=== PATIENT | male | born 1955 | race Hispanic/Latino ===

== ENCOUNTER 2016-12-27 06:07 | Inpatient (IN) | payer OTHER ==
[2016-12-24 08:44] VITALS: BMI 25.7
[2016-12-27] MEDS ORDERED: Lactated Ringer's 1,000 ML IV ONE ×2 (06:33→09:36)
--- NOTE | 2016-12-27 06:45 | CP.PCM.HP ---
History of Present Illness - History of Present Illness History of Present Illness: CC: scheduled L knee replacement HPI: This is a 61 y/o male with EtOH liver disease and thrombocytopenia, HTN, and HLD who comes in for L knee replacement got osteoarthritis. Patient currently has no c/c. No CP, no SOB. No recent f/c/n/v/d. L knee without any acute changes recently. No significant bleeding recently. Patient otherwise voices no c/c. ROS: 14 systems reviewed, negative other than HPI MHx: EtOH liver disease with thrombocytopenia, HTN, HLD, Parekh's esophagus SHx: Clavicle repair, knee surgery x 2, L adrenal adenoma Allergies: silk Medications: Per med rec Family Hx: no relevant conditions reported Social Hx: Lives at home, occ EtOH, no tobacco Studies: EKG: NSR, ?QW in III, AVF CXR: No acute cardiac/pulm issues per report; L shoulder with screw at clavicle Nuclear stress: No areas of reperfusion defects, fixed ifnerior defect; LVEF 50% Echo: trace MR and TR; EF 70% per this test Labs: notable for WC 3.0, plt 83; AST/ALT: 122/87 Patient has pre-op eval per cardiology, hematology, GI and PCP. Present on Admission - Present on Admission Any Indicators Present on Admission: No Past Patient History - Past Medical History & Family History Past Medical History?: Yes - Past Social History Smoking Status: Never Smoked - CARDIAC Hx Cardiac Disorders: Yes Hx Hypercholesterolemia: Yes Hx Hypertension: Yes - PULMONARY Hx Respiratory Disorders: No - NEUROLOGICAL Hx Neurological Disorder: No - HEENT Hx HEENT Problems: No - RENAL Hx Chronic Kidney Disease: No - ENDOCRINE/METABOLIC Hx Endocrine Disorders: No - HEMATOLOGICAL/ONCOLOGICAL Hx Blood Disorders: No - INTEGUMENTARY Hx Dermatological Problems: No - MUSCULOSKELETAL/RHEUMATOLOGICAL Hx Musculoskeletal Disorders: Yes Hx Arthritis: Yes Hx Osteoarthritis: Yes - GASTROINTESTINAL Hx Gastrointestinal Disorders: No - GENITOURINARY/GYNECOLOGICAL Hx Genitourinary Disorders: No - PSYCHIATRIC Hx Psychophysiologic Disorder: Yes Hx Anxiety: Yes Hx Depression: Yes - SURGICAL HISTORY Hx Surgeries: Yes Hx Arthroscopy: Yes (RIGHT KNEE) Hx Orthopedic Surgery: Yes (LEFT SHOULDER .LEFT KNEE) - ANESTHESIA Hx Anesthesia: Yes Hx Anesthesia Reactions: No Hx Malignant Hyperthermia: No Has any member of the family had a problem w/ anesthesia?: No Meds Allergies/Adverse Reactions: Allergies Allergy/AdvReac Type Severity Reaction Status Date / Time silk AdvReac BLISTER Verified 12/24/16 08:42 Physical Exam - Constitutional Appears: No Acute Distress - Head Exam Head Exam: ATRAUMATIC, NORMOCEPHALIC - Eye Exam Eye Exam: EOMI, PERRL - ENT Exam ENT Exam: Mucous Membranes Dry - Neck Exam Neck exam: Positive for: Full Rom - Respiratory Exam Respiratory Exam: Clear to Auscultation Bilateral, NORMAL BREATHING PATTERN - Cardiovascular Exam Cardiovascular Exam: REGULAR RHYTHM, +S1, +S2 - GI/Abdominal Exam GI & Abdominal Exam: Normal Bowel Sounds, Soft - Extremities Exam Extremities exam: Positive for: normal inspection Additional comments: L knee without any redness/swelling - Neurological Exam Neurological exam: Alert, CN II-XII Intact, Oriented x3 - Psychiatric Exam Psychiatric exam: Normal Affect, Normal Mood - Skin Skin Exam: Dry, Warm Results - Vital Signs Recent Vital Signs: Last Vital Signs Temp 99.4 F 12/27/16 06:39 Pulse 82 12/27/16 06:39 Resp 20 12/27/16 06:39 BP 150/100 H 12/27/16 06:39 Pulse Ox 98 12/27/16 06:39 Assessment & Plan (1) Status post knee replacement Assessment and Plan: 61 y/o male presenting for scheduled L knee replacement. History of EtOH liver disease with thrombocytopenia. 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
[2016-12-27] MEDS ORDERED: Ropivacaine 0.5% 30ML IV ONE (07:12)
[2016-12-27] MEDS ORDERED: Lidocaine 1% Inj (20ml) ONE (07:14)
[2016-12-27] MEDS ORDERED: Bupivacaine 0.5% Inj(30mL) ONE (07:14)
[2016-12-27] MEDS ORDERED: Thrombin Topical 5,000 IU Spray Kit ONE (07:14)
[2016-12-27] MEDS ORDERED: Absorbable Gelatin Sponge Size 100 ONE (07:14)
[2016-12-27] MEDS ORDERED: Etomidate 20 mg/10ml Inj IV ONE (07:15)
[2016-12-27] MEDS ORDERED: Succinylcholine 200 mg/10 ml Inj IV ONE (07:15)
[2016-12-27] MEDS ORDERED: Phenylephrine 10 mg/ml Inj ONE (07:15)
[2016-12-27] MEDS ORDERED: Rocuronium 10 mg/ml (5 ml) ONE ×2 (07:15→09:43)
[2016-12-27] MEDS ORDERED: Propofol 10 mg/ml Inj (20 ML) ONE (07:15)
[2016-12-27] MEDS ORDERED: ceFAZolin IV 1 gm in Dextrose 1 GM/50 ML BAG IVPB ONE (07:18)
[2016-12-27] MEDS ORDERED: Midazolam 2 MG/2 ML VIAL ONE (07:50)
[2016-12-27] MEDS ORDERED: Dexamethasone 4 mg/1 ml ONE (09:09)
[2016-12-27] MEDS ORDERED: Sodium Chloride 0.9% 3,000 ML IV ONE (09:37)
[2016-12-27] MEDS ORDERED: Oxycodone/Acetaminophen 5/325 mg Tab PO PRN (09:41)
[2016-12-27] MEDS ORDERED: Sodium Chloride 0.9% 1,000 ML IV SCH (09:45)
[2016-12-27] MEDS ORDERED: Neostigmine Methylsulfate 2 MG/2 ML ML IV ONE (10:03)
[2016-12-27] MEDS ORDERED: Neostigmine Methylsulfate 3mg/3ml Syringe IV ONE (10:03)
[2016-12-27] MEDS ORDERED: HYDROmorphone 0.5 mg/0.5 ml ISec IVP PRN (11:24)
--- NOTE | 2016-12-27 11:28 | PCM.ANESB3 ---
Femoral Nerve Block - Femoral Nerve Block Date of Procedure: 12/27/16 Anesthesiologist: Karen Pre-Procedure Diagnosis: Left Knee OA Post-Procedure Diagnosis: Same Procedure Performed: Femoral Nerve Block Left - Procedure Femoral Nerve Block: The procedure was explained to the patient that it is for the post-operative pain management. Consent was obtained after a thorough discussion with the patient regarding the benefits and possible complications of local anesthetic block of the femoral nerve at the inguinal crease area. The patient was brought to the operating room and standard monitors were applied. Time-out was held with the circulating nurse to confirm the correct surgery and the appropriate block. Under general anesthesia, patient was placed in supine position with fully extended lower extremities and the ___left groin exposed. The femoral artery was then carefully palpated. The ultrasound transducer was then applied to this area in the transverse plane and the femoral nerve was visualized lateral to the femoral artery and underneath the fascia iliaca. After thorough identification, the inguinal crease area was prepped with Chloraprep. At this point, a #22 gauge Stimuplex 4-inch needle was inserted immediately lateral to the femoral artery pulse at the inguinal crease and advanced perpendicularly. The needle was inserted to the ultrasound transducer in-plane towards the femoral nerve in a cresuuz-eu-[id number] direction. Needle advancement was performed carefully under direct ultrasound visualization. Nerve stimulator was used and twitch of the quadriceps muscle was obtained at current of __0.4___ MA. After negative aspiration, _2____cc of __0.5___% ropivicaine ____was injected and this was followed with __18____ cc of __0.5 % ropivicaine . Under ultrasound guidance the local anesthetics were observed spreading below fascia iliaca and around the femoral nerve. The needle was removed intact. The patient tolerated the femoral nerve block well with stable vital signs and was prepared for subsequent surgery.
[2016-12-27] MEDS ORDERED: Lactated Ringer's 1,000 ML IV SCH (11:30)
--- NOTE | 2016-12-27 11:30 | PCM.ANESB2 ---
Popliteal Nerve Block - Popliteal Nerve Block Date of Procedure: 12/27/16 Anesthesiologist: Karen Pre-Procedure Diagnosis: Left Knee OA Post-Procedure Diagnosis: Same Procedure Performed: Popliteal Nerve Block Left - Procedure Popliteal Nerve Block: This procedure was explained to the patient that it is for post-operative pain management. Consent was obtained after a thorough discussion with the patient regarding the benefits and possible complications of local anesthetic block of the sciatic nerve at the popliteal level. The patient was brought to the operating room and standard monitors are applied. Time-out was held with the circulating nurse to confirm the correct surgery and the appropriate block. Under general anesthesia, patient's operative leg was gently raised and supported and the groove in between the biceps femoris and vastus lateralis muscles was carefully palpated. The skin approximately 8cm above the popliteal crease was then marked. The ultrasound transducer was then applied to the posterior thigh approximately 8cm above the popliteal crease in the transverse plane and the sciatic nerve before its division was visualized lateral to the popliteal artery and in between the bicep femoris and semimembranosus/ semitendinosus muscles. After identification, the lateral portion of the thigh was prepped with Betadine solution three times and Lidocaine 1% was injected subcutaneously for topical anesthesia. At this point, a # 21 gauge Stimuplex insulated 4 inch needle was inserted into pre-marked area and advanced in a perpendicular direction. The needle was inserted above the ultrasound transducer in-plane towards the sciatic nerve in a ptipxal-if-eqwhda direction. Needle advancement was performed carefully under direct ultrasound visualization. Nerve stimulator was used and dorsiflexion of the _left____ foot was elicited at a current of ___0.4__ MA. After repeated negative aspiration, __2___cc of __0.5___ % ____ropivicaine was injected and this was flowed with __18____ cc of __0.5____% ___ropivicaine ___. Under ultrasound guidance the local anesthetics were observed surrounding sciatic nerve . The needle was removed intact and sterile dressing was applied. The patient tolerated the popliteal nerve block well with stable vital signs and was subsequently prepared for the surgery.
[2016-12-27 13:06] LABS: HEMATOCRIT 32.4 % (35.0-51.0); MEAN CELL VOLUME 98.3 fl (80.0-94.0); MEAN CORPUSCULAR HEMOGLOBIN 32.5 pg (27.0-31.0); RED CELL DISTRIBUTION WIDTH 15.7 % (11.5-14.5); WHITE BLOOD COUNT 3.4 K/uL (4.8-10.8)
--- NOTE | 2016-12-27 14:00 | PCM.SURG1 ---
Surgeon's Initial Post Op Note - Surgeon's Notes Surgeon: Simeon Care Process Manager: ELAINA Robles/ 2nd assist Gabino Roberts Type of Anesthesia: General Endo, Spinal Anesthesia Administered By: Dr Jones Pre-Operative Diagnosis: Severe ticompartmental O/A L Knee. tricompartmental synovitis Operative Findings: as above. loose body L Knee Post-Operative Diagnosis: as above Operation Performed: L TKR. arthrotomy/excision loose body Lk nee. anterior and posterior synovectomy. posterior capsular release. lateral patella release. computer navigation Specimen/Specimens Removed: cratilage/synovium. bone. loose body Estimated Blood Loss: EBL {In ML}: 50 Blood Products Given: N/A Drains Used: No Drains Post-Op Condition: Good Date of Surgery/Procedure: 12/27/16 Time of Surgery/Procedure: 09:00 (0745- time in room/anesthesia induction time)
--- NOTE | 2016-12-27 14:22 | RAD ---
PROCEDURE: Left Knee Radiographs. HISTORY: Pain. COMPARISON: None. FINDINGS: BONES: Normal. No fracture. JOINTS: Left knee prosthesis. No complicating factors JOINT EFFUSION: None. OTHER FINDINGS: None. IMPRESSION: Left knee prosthesis. No complicating factors
[2016-12-27] MEDS: ceFAZolin IV 1 gm in Dextrose 1 GM/50 ML BAG IVPB SCH (17:58)
[2016-12-28] MEDS: ceFAZolin IV 1 gm in Dextrose 1 GM/50 ML BAG IVPB SCH (00:49)
[2016-12-28 06:41] LABS: HEMATOCRIT 27.6 % (35.0-51.0); MEAN CELL VOLUME 96.5 fl (80.0-94.0); MEAN CORPUSCULAR HEMOGLOBIN 32.4 pg (27.0-31.0); MEAN CORPUSCULAR HGB CONC 33.6 g/dL (33.0-37.0)
[2016-12-28 06:48] LABS: ALB/GLOB RATIO 1.4 (1.0-2.1); ALKALINE PHOSPHATASE 33 U/L (38-126); ALT/SGPT 67 U/L (21-72); AST/SGOT 65 U/L (17-59); BILIRUBIN,TOTAL 1.7 mg/dl (0.2-1.3); BLOOD UREA NITROGEN 20 mg/dl (9-20); CALCIUM 7.3 mg/dL (8.4-10.2); CARBON DIOXIDE 26 mmol/L (22-30); CHLORIDE 102 mmol/L (98-107); GFR AFRICAN-AMERICAN > 60; GLUCOSE,RANDOM 94 mg/dL (75-110); POTASSIUM 3.7 MMOL/L (3.6-5.0); SODIUM 137 mmol/l (132-148); TOTAL PROTEIN 5.7 G/DL (6.3-8.2)
[2016-12-28 07:31] LABS: WHITE BLOOD COUNT 5.2 K/uL (4.8-10.8)
--- NOTE | 2016-12-28 08:18 | CP.PCM.CON ---
History of Present Illness - History of Present Illness History of Present Illness: 61 year male with a history of HTN, HL, liver disease from ETOH, thrombocytopenia, osteoarthritis admitted for left knee replacement. I have been asked to evaluate the patient for his thrombocytopenia by Dr. Hendrix. The patient notes he has had low platelets in the past. He was told it was related to his alcohol intake and was told to stop drinking. He notes to greatly reducing his alcohol use and now only drinks 2-3 glasses of wine daily. He denies abnormal bleeding and bruising. Past medical history: HTN, HL, liver disease, alcohol abuse, thrombocytopenia, Past surgical history: Adrenal gland surgery, knee surgery Family history: Denies hematologic and oncologic problems Social history: Former tobacco abuse, 2-3 glasses of wine daily, denies illicit drug use. Allergies: NKDA Review of systems: All remaining review of systems including HEENT, cardiovascular, respiratory, gastrointestinal, genitourinary, musculoskeletal, dermatologic, neurologic, and psychiatric are negative unless mentioned in the HPI. Past Patient History - Past Medical History & Family History Past Medical History?: Yes - Past Social History Smoking Status: Never Smoked - CARDIAC Hx Cardiac Disorders: Yes Hx Hypercholesterolemia: Yes Hx Hypertension: Yes - PULMONARY Hx Respiratory Disorders: No - NEUROLOGICAL Hx Neurological Disorder: No - HEENT Hx HEENT Problems: No - RENAL Hx Chronic Kidney Disease: No - ENDOCRINE/METABOLIC Hx Endocrine Disorders: No - HEMATOLOGICAL/ONCOLOGICAL Hx Blood Disorders: No - INTEGUMENTARY Hx Dermatological Problems: No - MUSCULOSKELETAL/RHEUMATOLOGICAL Hx Musculoskeletal Disorders: Yes Hx Arthritis: Yes Hx Osteoarthritis: Yes - GASTROINTESTINAL Hx Gastrointestinal Disorders: No - GENITOURINARY/GYNECOLOGICAL Hx Genitourinary Disorders: No - PSYCHIATRIC Hx Psychophysiologic Disorder: Yes Hx Anxiety: Yes Hx Depression: Yes - SURGICAL HISTORY Hx Surgeries: Yes Hx Arthroscopy: Yes (RIGHT KNEE) Hx Orthopedic Surgery: Yes (LEFT SHOULDER .LEFT KNEE) - ANESTHESIA Hx Anesthesia: Yes Hx Anesthesia Reactions: No Hx Malignant Hyperthermia: No Has any member of the family had a problem w/ anesthesia?: No Meds Allergies/Adverse Reactions: Allergies Allergy/AdvReac Type Severity Reaction Status Date / Time silk AdvReac BLISTER Verified 12/24/16 08:42 - Medications Medications: Current Medications Acetaminophen (Tylenol 325mg Tab) 650 mg PO Q4 PRN PRN Reason: Fever 101 degrees fahrenheit Aspirin (Ecotrin) 81 mg PO Q12H [facility] Docusate Sodium (Colace) 100 mg PO BID [facility] Last Admin: 12/27/16 17:58 Dose: 100 mg Hydromorphone HCl (Dilaudid) 0.5 mg IVP Q4 PRN PRN Reason: Pain, severe (8-10) Sodium Chloride (Sodium Chloride 0.9%) 1,000 mls @ 80 mls/hr IV .[id number] [facility] Stop: 12/28/16 09:44 Last Admin: 12/27/16 21:37 Dose: 80 mls/hr Lactated Ringer's (Lactated Ringer's) 1,000 mls @ 100 mls/hr IV .Q10H [facility] Lorazepam (Ativan) 0.5 mg IVP Q4 PRN PRN Reason: Symptoms of alcohol withdrawl Oxycodone/Acetaminophen (Percocet 5/325 Mg Tab) 2 tab PO Q4 PRN PRN Reason: Pain, Mild (1-3) Stop: 12/30/16 09:42 Thiamine HCl (Vitamin B1 Tab) 100 mg PO DAILY [facility] Last Admin: 12/27/16 16:33 Dose: 100 mg Physical Exam - Head Exam Head Exam: ATRAUMATIC - Eye Exam Eye Exam: Normal appearance - ENT Exam ENT Exam: Mucous Membranes Dry - Respiratory Exam Respiratory Exam: NORMAL BREATHING PATTERN - Cardiovascular Exam Cardiovascular Exam: +S1, +S2 - GI/Abdominal Exam GI & Abdominal Exam: Normal Bowel Sounds - Extremities Exam Additional comments: left leg brace - Neurological Exam Neurological exam: Oriented x3 - Psychiatric Exam Psychiatric exam: Normal Affect, Normal Mood - Skin Skin Exam: Warm Results - Vital Signs Recent Vital Signs: Last Vital Signs Temp 98.4 F 12/28/16 07:25 Pulse 84 12/28/16 07:25 Resp 18 12/28/16 07:25 BP 132/85 12/28/16 07:25 Pulse Ox 98 12/28/16 07:25 - Labs Result Diagrams: 12/28/16 06:00 12/28/16 06:00 Labs: Laboratory Results - last 24 hr 12/27/16 12/27/16 12/27/16 06:40 06:55 12:45 WBC 3.4 L RBC 3.30 L Hgb 10.7 L Hct 32.4 L MCV 98.3 H MCH 32.5 H MCHC 33.0 RDW 15.7 H Plt Count 103 L Sodium Potassium Chloride Carbon Dioxide Anion Gap BUN Creatinine Est GFR ( Amer) Est GFR (Non-Af Amer) Random Glucose Calcium Total Bilirubin AST ALT Alkaline Phosphatase Total Protein Albumin Globulin Albumin/Globulin Ratio Blood Type O POSITIVE Blood Type Confirm O POSITIVE Antibody Screen Negative Crossmatch See Detail BBK History Checked No verified bt 12/28/16 12/28/16 06:00 06:00 WBC 5.2 D RBC 2.86 L Hgb 9.3 L Hct 27.6 L MCV 96.5 H MCH 32.4 H MCHC 33.6 RDW 15.0 H Plt Count 86 L Sodium 137 Potassium 3.7 Chloride 102 Carbon Dioxide 26 Anion Gap 13 BUN 20 Creatinine 1.0 Est GFR ( Amer) > 60 Est GFR (Non-Af Amer) > 60 Random Glucose 94 Calcium 7.3 L Total Bilirubin 1.7 H AST 65 H ALT 67 Alkaline Phosphatase 33 L Total Protein 5.7 L Albumin 3.4 L Globulin 2.4 Albumin/Globulin Ratio 1.4 Blood Type Blood Type Confirm Antibody Screen Crossmatch BBK History Checked Assessment & Plan (1) Pancytopenia Assessment and Plan: may have element of splenic sequestration from liver disease related to alcoholism may have element of bone marrow suppression from alcohol case discussed with anesthesia preop; to receive desmopressin 0.2-0.3mcg/kg IV 1 bag platelets on hold by blood bank Thank you for this interesting consult. Status: Acute
[2016-12-28] MEDS ORDERED: Simethicone 80 mg Chewtab PO PRN (09:06)
--- NOTE | 2016-12-28 09:08 | CP.PCM.PN ---
Subjective - Date & Time of Evaluation Date of Evaluation: 12/28/16 Time of Evaluation: 07:30 - Subjective Subjective: Patient states pain is controlled, feeling is starting to come back. Objective - Vital Signs/Intake and Output Vital Signs (last 24 hours): Temp Pulse Resp BP Pulse Ox 98.4 F 84 18 132/85 98 12/28/16 07:25 12/28/16 07:25 12/28/16 07:25 12/28/16 07:25 12/28/16 07:25 - Medications Medications: Current Medications Acetaminophen (Tylenol 325mg Tab) 650 mg PO Q4 PRN PRN Reason: Fever 101 degrees fahrenheit Aspirin (Ecotrin) 81 mg PO Q12H [facility]EMA Docusate Sodium (Colace) 100 mg PO BID [facility] Last Admin: 12/28/16 08:44 Dose: 100 mg Hydromorphone HCl (Dilaudid) 0.5 mg IVP Q4 PRN PRN Reason: Pain, severe (8-10) Last Admin: 12/28/16 08:43 Dose: 0.5 mg Sodium Chloride (Sodium Chloride 0.9%) 1,000 mls @ 80 mls/hr IV .[id number] [facility] Stop: 12/28/16 09:44 Last Admin: 12/27/16 21:37 Dose: 80 mls/hr Lactated Ringer's (Lactated Ringer's) 1,000 mls @ 100 mls/hr IV .Q10H [facility] Lorazepam (Ativan) 0.5 mg IVP Q4 PRN PRN Reason: Symptoms of alcohol withdrawl Oxycodone/Acetaminophen (Percocet 5/325 Mg Tab) 2 tab PO Q4 PRN PRN Reason: Pain, Mild (1-3) Stop: 12/30/16 09:42 Thiamine HCl (Vitamin B1 Tab) 100 mg PO DAILY [facility] Last Admin: 12/28/16 08:45 Dose: 100 mg - Labs Labs: 12/28/16 06:00 12/28/16 06:00 - Extremities Exam Additional comments: +ROM ankle/toes, but sensation is a little decreased globally (due to block) calves soft NT neg homans +DP/PT pulses Assessment and Plan (1) Primary osteoarthritis of left knee Assessment & Plan: POD#1 s/p left TKR PT/OT d/c planning to home vs rehab f/u labs, monitor platelets CPM VTE proph with aspirin as per Dr. Hendrix d/w Dr. Hendrix, agrees with above Status: Acute
--- NOTE | 2016-12-28 10:32 | OP ---
PROCEDURE DATE: 12/27/2016 PREOPERATIVE DIAGNOSIS: Tricompartmental osteoarthritis of the left knee. POSTOPERATIVE DIAGNOSES: 1. Tricompartmental osteoarthritis of the left knee. 2. Tricompartmental synovitis. 3. Loose body, posterior compartment. 4. Posterior capsular contracture. 5. Lateral patellar retinacular contracture. SURGEON: Solitario Hendrix MD CLAY ARTISAN: Bonnie Harris, certified registered nursing teaching assistant. SEC[employer]CHO[employer] BASEBALL COACH: Alejandra. TYPE OF ANESTHESIA: General endotracheal anesthesia. COMPLICATIONS: None. DRAINS: None. 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 The patient has failed conservative management including intra-articular injection, activity modification, and therapy. Pros, cons, risks, and benefits of replacement arthroplasty were discussed. Possibility of mechanical failure, infection, thromboembolic disease, secondary or tertiary surgery is discussed. The patient can no longer withstand the discomfort. Informed consent was obtained. DESCRIPTION OF PROCEDURE: After having obtained informed consent in the above fashion; after having identified side, site, and procedure and a critical pause/time-out; after the satisfactory induction of the anesthetic, the patient identified as Colette Denson in the supine position with all bony prominences well padded. The left lower extremity was prepped and free draped in usual fashion for lower extremity surgery. The tourniquet had been applied, but was not yet inflated. After exsanguinating the limb using a 6-inch Esmarch bandage, the tourniquet, which had been applied, is inflated to 350 mmHg. The patient had had a prior knee surgery 30 years ago, and great care was taken to respect an incision. A 6-inch straight midline approach was made to the knee. The skin incision was carried down through the skin, subcutaneous tissue. Medial arthrotomy was accomplished. Dissection was carried around posteromedially. The tibia was dislocated anteriorly. There was found to be contractures on the lateral aspect. The iliotibial band was released. Tibia was dislocated anteriorly. Anterior and posterior cruciate ligaments were excised, and medial and lateral meniscectomies were accomplished. Computer navigation using the accelerometer technique was employed at this point. This having been accomplished with the tibia dislocating anteriorly, the anterior tibial strut was affixed to the anterior tibia. The accelerometer and sensor were placed. Registration was accomplished, and the varus-valgus was set to 0 degrees and posterior slope to 3 degrees to accommodate the prosthesis prominent condyle. Initial osteotomy of the arthroplasty was accomplished on the tibial side. Attention was turned to the femur. Notch osteophytes, border osteophytes debrided. Computer navigation for the distal cut on the femoral side commenced. The pin was placed above the intercondylar notch. The accelerometer and sensor were placed. Varus-valgus was noted, 0 degrees varus-valgus and 0.5 degrees of flexion. This having been accomplished, distal cut was set to 10 mm. Hip center having been located, registration having being accomplished, the distal cut was 10 mm. Anterior-posterior sizing to #3 femoral component; 4:1 block was placed in the distal aspect of the femur. Anterior and posterior osteotomies were accomplished. Chamfer cuts were accomplished. This having been accomplished, flexion extension gap was measured and found to be equal. This having been accomplished, the posterior capsule was found to be contracted. Preoperatively, the knee was 10 to 12 degrees short of terminal extension. A careful posterior capsular release was accomplished. Notch cut was accomplished. Proximal tibia was prepared with guidance to rotation being the lateral aspect of the tibial condyle, mid malleolar access, and medial third of the tibial tuberosity. Lateral patellar retinacular release was accomplished. Trialing was accomplished with the #4 tibial tray, #3 femoral tray, 11 mm poly. Attention was turned to the patellar-free hip. Patella osteotomy was accomplished at the junction of the articular cartilage and the bone. This having been accomplished, the patella was sized to 38. Flexion-extension gap was found to be excellent in balance. This having been accomplished, the wound was thoroughly irrigated. It should be noted that an anterior and posterior synovectomy had been accomplished early on because of the exuberant synovitis. Hemostasis was controlled. This having been accomplished, the wound was thoroughly irrigated. The femur, tibia, and patella were prepared. The #3 cemented femoral component was applied. The #4 cemented tibial tray, 11 mm polyethylene, 38 mm patella. Partial tricompartmental synovectomy having been completed, hemostasis was controlled with the Aquamantys. Closure was in layers with #1 Vicryl followed by 0 Vicryl, 2-0 Vicryl, and jose for skin. Tourniquet had been deflated. Irrisept was used for irrigation. Shadi Canela compression dressing and knee immobilizer were applied. Solitario Hendrix MD
--- NOTE | 2016-12-28 11:24 | CP.PCM.PN ---
Subjective - Date & Time of Evaluation Date of Evaluation: 12/28/16 Time of Evaluation: 11:00 - Subjective Subjective: Pt is sitted on the Ortho chair, looks comfortable No fever Post op pain controlled denies CP no SOB no abd pain noted sl hand tremor - ? Alcohol withdrawal - Ativan prn given Pt did well with PT today Objective - Vital Signs/Intake and Output Vital Signs (last 24 hours): Temp Pulse Resp BP Pulse Ox 98.4 F 84 18 132/85 98 12/28/16 09:00 12/28/16 07:25 12/28/16 07:25 12/28/16 07:25 12/28/16 07:25 - Medications Medications: Current Medications Acetaminophen (Tylenol 325mg Tab) 650 mg PO Q4 PRN PRN Reason: Fever 101 degrees fahrenheit Aspirin (Ecotrin) 81 mg PO Q12H [facility] Last Admin: 12/28/16 11:02 Dose: 81 mg Atorvastatin Calcium (Lipitor) 10 mg PO HS [facility] Calcium Carbonate (Oscal) 500 mg PO DAILY [facility] Docusate Sodium (Colace) 100 mg PO BID [facility] Last Admin: 12/28/16 08:44 Dose: 100 mg Escitalopram Oxalate (Lexapro) 10 mg PO DAILY [facility] Home Med (Magnesium Oxide [Magnesium]) 500 mg PO DAILY [facility] Home Med (Silodosin [Rapaflo]) 8 mg PO DAILY [facility] Home Med (Simethicone [Gas Relief]) 180 mg PO BID PRN PRN Reason: GI distress Hydromorphone HCl (Dilaudid) 0.5 mg IVP Q4 PRN PRN Reason: Pain, severe (8-10) Last Admin: 12/28/16 08:43 Dose: 0.5 mg Lactated Ringer's (Lactated Ringer's) 1,000 mls @ 100 mls/hr IV .Q10H [facility] Labetalol HCl (Trandate) 200 mg PO BID [facility] Lorazepam (Ativan) 0.5 mg IVP Q4 PRN PRN Reason: Symptoms of alcohol withdrawl Last Admin: 12/28/16 11:11 Dose: 0.5 mg Oxycodone/Acetaminophen (Percocet 5/325 Mg Tab) 2 tab PO Q4 PRN PRN Reason: Pain, Mild (1-3) Stop: 12/30/16 09:42 Last Admin: 12/28/16 11:01 Dose: 2 tab Thiamine HCl (Vitamin B1 Tab) 100 mg PO DAILY [facility] Last Admin: 12/28/16 08:45 Dose: 100 mg - Labs Labs: 12/28/16 06:00 12/28/16 06:00 - Constitutional Appears: No Acute Distress - Head Exam Head Exam: NORMAL INSPECTION, NORMOCEPHALIC - Eye Exam Eye Exam: EOMI, Normal appearance, PERRL Pupil Exam: NORMAL ACCOMODATION - ENT Exam ENT Exam: Mucous Membranes Moist, Normal External Ear Exam - Neck Exam Neck Exam: Full ROM. absent: Meningismus - Respiratory Exam Respiratory Exam: NORMAL BREATHING PATTERN. absent: Rales, Wheezes, Respiratory Distress - Cardiovascular Exam Cardiovascular Exam: REGULAR RHYTHM, +S1, +S2 - GI/Abdominal Exam GI & Abdominal Exam: Soft, Normal Bowel Sounds. absent: Tenderness - Extremities Exam Extremities Exam: Normal Capillary Refill. absent: Calf Tenderness Additional comments: left knee with dressing, Immobilizer sl hand tremor - Back Exam Back Exam: Full ROM. absent: CVA tenderness (L), CVA tenderness (R) - Neurological Exam Neurological Exam: Alert, Awake, CN II-XII Intact, Oriented x3 Neuro motor strength exam: Left Upper Extremity: 5, Right Upper Extremity: 5, Left Lower Extremity: 5, Right Lower Extremity: 5 - Psychiatric Exam Psychiatric exam: Normal Affect, Normal Mood - Skin Skin Exam: Dry, Normal Color, Warm Assessment and Plan - Assessment and Plan (Free Text) Assessment: 61 y/o male presenting for scheduled L knee replacement. Long history of OA, failed oupt treatment with intraart injections, Pain mgt and PT. Pt also has hx of EtOH liver disease with thrombocytopenia. (1) Severe Primary Osteoarthritis , Status post total knee replacement, left Ortho: Dr Henrdix following pt Pain mgt PT/OT DVT proph (2) HTN (hypertension) Status: Acute cont Labetatlol (3) HLD (hyperlipidemia) Status: Acute cont statin (4) Alcoholic liver disease with thrombocytopenia Status: Acute Ativan prn for signs of ETOH withdrawal Thiamine 100 mg daily no signs of bleeding received DDAVP in the OR 5. Mild Acute Blood Loss Anemia post op start Ferrous pt is asymptomatic (6) DVT prophylaxis Status: Acute cont ASA no antcicoag sec to thrombocytopenia
[2016-12-29] MEDS ORDERED: Magnesium Oxide 400 mg Tab UD PO SCH (09:00)
[2016-12-29] MEDS ORDERED: Lactated Ringer's 500 ML IV SCH (10:30)
--- NOTE | 2016-12-29 10:30 | CP.PCM.PN ---
Subjective - Date & Time of Evaluation Date of Evaluation: 12/29/16 Time of Evaluation: 07:30 - Subjective Subjective: patient states pain is improving. Denies CP/SOB, says he feels less shaky and anxious today. Objective - Vital Signs/Intake and Output Vital Signs (last 24 hours): Temp Pulse Resp BP Pulse Ox 99 F 107 H 20 111/68 97 12/29/16 08:10 12/29/16 10:15 12/29/16 10:15 12/29/16 10:15 12/29/16 10:15 - Medications Medications: Current Medications Acetaminophen (Tylenol 325mg Tab) 650 mg PO Q4 PRN PRN Reason: Fever 101 degrees fahrenheit Aspirin (Ecotrin) 81 mg PO Q12H [facility] Last Admin: 12/29/16 09:00 Dose: 81 mg Atorvastatin Calcium (Lipitor) 10 mg PO HS [facility] Last Admin: 12/28/16 20:59 Dose: 10 mg Calcium Carbonate (Oscal) 500 mg PO DAILY [facility] Last Admin: 12/29/16 09:00 Dose: 500 mg Docusate Sodium (Colace) 100 mg PO BID [facility] Last Admin: 12/29/16 08:58 Dose: 100 mg Escitalopram Oxalate (Lexapro) 10 mg PO DAILY [facility] Last Admin: 12/29/16 08:59 Dose: 10 mg Ferrous Sulfate (Feosol) 325 mg PO BID [facility] Last Admin: 12/29/16 08:58 Dose: 325 mg Folic Acid (Folic Acid) 1 mg PO DAILY [facility] Last Admin: 12/29/16 08:59 Dose: 1 mg Hydromorphone HCl (Dilaudid) 0.5 mg IVP Q4 PRN PRN Reason: Pain, severe (8-10) Last Admin: 12/29/16 08:57 Dose: 0.5 mg Lactated Ringer's (Lactated Ringer's 500ml) 500 mls @ 100 mls/hr IV .Q5H [facility] Labetalol HCl (Trandate) 200 mg PO BID [facility] Last Admin: 12/29/16 09:00 Dose: 200 mg Lorazepam (Ativan) 0.5 mg IVP Q4 PRN PRN Reason: Symptoms of alcohol withdrawl Last Admin: 12/28/16 21:02 Dose: 0.5 mg Magnesium Oxide (Mag-Ox) 400 mg PO DAILY [facility] Last Admin: 12/29/16 08:59 Dose: 400 mg Oxycodone/Acetaminophen (Percocet 5/325 Mg Tab) 2 tab PO Q4 PRN PRN Reason: Pain, Mild (1-3) Stop: 12/30/16 09:42 Last Admin: 12/28/16 11:01 Dose: 2 tab Simethicone (Mylicon Chew Tab) 160 mg PO BID PRN PRN Reason: GI distress Tamsulosin HCl (Flomax) 0.4 mg PO DAILY [facility] Last Admin: 12/29/16 08:59 Dose: 0.4 mg Thiamine HCl (Vitamin B1 Tab) 100 mg PO DAILY [facility] Last Admin: 12/29/16 09:00 Dose: 100 mg - Labs Labs: 12/28/16 06:00 12/28/16 06:00 - Extremities Exam Additional comments: Left knee: moderate swelling as expected, no active drainage, no erythema, +ROM ankle/toes 5/5, sensatino intact +DP/PT pulses Assessment and Plan (1) Primary osteoarthritis of left knee Assessment & Plan: POD#2 s/p left TKR -ortho stable for d/c to rehab -Cont aspirin for VTE proph -dressing to be changed POD#7 WBAT LLE, knee immobilizer at night, remove during day, encourage ROM -f/u 10-14 days call for appointment [phone] Status: Acute
--- NOTE | 2016-12-29 11:36 | CP.PCM.DIS ---
Provider - Provider Date of Admission: 12/27/16 09:41 Attending physician: Elba Valerio MD Primary care physician: Solitario Hendrix III, MD Consults: Ortho : Dr Hendrix Cardio: Dr Brothers Time Spent in preparation of Discharge (in minutes): 40 Diagnosis - Discharge Diagnosis (1) Status post knee replacement Status: Acute (2) Primary osteoarthritis of left knee Status: Chronic (3) Acute blood loss as cause of postoperative anemia Status: Acute (4) Alcoholic liver disease Status: Chronic (5) HLD (hyperlipidemia) Status: Chronic (6) HTN (hypertension) Status: Chronic (7) Thrombocytopenia Status: Chronic Hospital Course - Lab Results Lab Results: Most Recent Lab Values WBC 5.2 K/uL (4.8-10.8) D 12/28/16 06:00 RBC 2.86 Mil/uL (4.40-5.90) L 12/28/16 06:00 Hgb 9.3 g/dL (12.0-18.0) L 12/28/16 06:00 Hct 27.6 % (35.0-51.0) L 12/28/16 06:00 MCV 96.5 fl (80.0-94.0) H 12/28/16 06:00 MCH 32.4 pg (27.0-31.0) H 12/28/16 06:00 MCHC 33.6 g/dL (33.0-37.0) 12/28/16 06:00 RDW 15.0 % (11.5-14.5) H 12/28/16 06:00 Plt Count 86 K/uL (130-400) L 12/28/16 06:00 Sodium 137 mmol/l (132-148) 12/28/16 06:00 Potassium 3.7 MMOL/L (3.6-5.0) 12/28/16 06:00 Chloride 102 mmol/L (98-107) 12/28/16 06:00 Carbon Dioxide 26 mmol/L (22-30) 12/28/16 06:00 Anion Gap 13 (10-20) 12/28/16 06:00 BUN 20 mg/dl (9-20) 12/28/16 06:00 Creatinine 1.0 mg/dL (0.8-1.5) 12/28/16 06:00 Est GFR ( Amer) > 60 12/28/16 06:00 Est GFR (Non-Af Amer) > 60 12/28/16 06:00 Random Glucose 94 mg/dL (75-110) 12/28/16 06:00 Calcium 7.3 mg/dL (8.4-10.2) L 12/28/16 06:00 Total Bilirubin 1.7 mg/dl (0.2-1.3) H 12/28/16 06:00 AST 65 U/L (17-59) H 12/28/16 06:00 ALT 67 U/L (21-72) 12/28/16 06:00 Alkaline Phosphatase 33 U/L (38-126) L 12/28/16 06:00 Total Protein 5.7 G/DL (6.3-8.2) L 12/28/16 06:00 Albumin 3.4 g/dL (3.5-5.0) L 12/28/16 06:00 Globulin 2.4 gm/dL (2.2-3.9) 12/28/16 06:00 Albumin/Globulin Ratio 1.4 (1.0-2.1) 12/28/16 06:00 Blood Type O POSITIVE 12/27/16 06:40 Blood Type Confirm O POSITIVE 12/27/16 06:55 Antibody Screen Negative 12/27/16 06:40 Crossmatch See Detail 12/27/16 06:40 BBK History Checked No verified bt 12/27/16 06:40 - Hospital Course Hospital Course: 61 y/o male presented for scheduled L knee replacement. Long history of OA, failed outpt treatment with intraarticular injections, Pain mgt and PT. Pt also has hx of EtOH liver disease with thrombocytopenia. (1) Severe Primary Osteoarthritis , Status post total knee replacement, left Ortho: Dr Hendrix Pain mgt WBAT immobilizer at bedtime only PT/OT DVT proph (2) HTN (hypertension) Status: Acute cont Labetatalol (3) HLD (hyperlipidemia) Status: Acute cont statin (4) Alcoholic liver disease with thrombocytopenia Status: Acute Ativan prn for signs of ETOH withdrawal Thiamine 100 mg daily Librium tapering dose no signs of bleeding received DDAVP in the OR 5. Mild Acute Blood Loss Anemia post op start Ferrous pt is asymptomatic transfused 1 unit PRBC (6) DVT prophylaxis Status: Acute cont ASA no anticoag sec to thrombocytopenia Discharge Exam - Head Exam Head Exam: ATRAUMATIC, NORMAL INSPECTION, NORMOCEPHALIC - Eye Exam Eye Exam: EOMI, Normal appearance, PERRL Pupil Exam: NORMAL ACCOMODATION - ENT Exam ENT Exam: Mucous Membranes Moist, Normal External Ear Exam - Neck Exam Neck exam: Full Rom - Respiratory Exam Respiratory Exam: NORMAL BREATHING PATTERN. absent: Respiratory Distress - Cardiovascular Exam Cardiovascular Exam: REGULAR RHYTHM, +S1, +S2 - GI/Abdominal Exam GI & Abdominal Exam: Normal Bowel Sounds, Soft. absent: Tenderness - Extremities Exam Extremities exam: normal capillary refill, pedal pulses present Additional comments: no calf tenderness Left knee with dressing and Immobilizer - Back Exam Back exam: FULL ROM. absent: CVA tenderness (L), CVA tenderness (R) - Neurological Exam Neurological exam: Alert, CN II-XII Intact, Oriented x3, Reflexes Normal - Psychiatric Exam Psychiatric exam: Normal Affect, Normal Mood - Skin Skin Exam: Dry, Normal Color Discharge Plan - Discharge Medications Prescriptions: chlordiazePOXIDE [Chlordiazepoxide HCl] 10 mg PO Q6 #10 cap Lorazepam [Ativan] 0.5 mg PO Q8 PRN #1 tab PRN Reason: Symptoms Of Alcohol Withdrawl - Follow Up Plan Condition: GOOD Disposition: TRANSF TO SNF Instructions: Knee Replacement (DC) Additional Instructions: d/c to [facility] WBAT Keep immobilizer on at night, d/c during daytime appt with Dr Hendrix in 1 wk Watch out for signs of Alcohol Withdrawal Referrals: Solitario Hendrix III, MD [Primary Care Provider] -
[2016-12-29 11:41] LABS: HEMATOCRIT 25.8 % (35.0-51.0); MEAN CELL VOLUME 95.3 fl (80.0-94.0); MEAN CORPUSCULAR HEMOGLOBIN 33.3 pg (27.0-31.0); RED CELL DISTRIBUTION WIDTH 15.1 % (11.5-14.5); WHITE BLOOD COUNT 5.9 K/uL (4.8-10.8)
[2016-12-29 16:11] VITALS: BP 112/76; PULSE 99; RESP 20; TEMP 98.9; O2SAT 97
== END 2016-12-29 18:40 | DRG 470 ==
LOC: H.OPSURG 06:07 → EDSEX 07:45 → H.MEDSURG1 09:41
PROVIDERS: ADMIT Internal Medicine; ATTEND Internal Medicine
PROC: 0SRD0J9 Replacement of Left Knee Joint with Synthetic Substitute, Cemented, Open Approach (ICD-10-PCS; principal; 2016-12-27 07:45)
PROC: 3E0T3BZ Introduction of Anesthetic Agent into Peripheral Nerves and Plexi, Percutaneous Approach (ICD-10-PCS; 2016-12-27 07:45)
PROC: 3E0T33Z Introduction of Anti-inflammatory into Peripheral Nerves and Plexi, Percutaneous Approach (ICD-10-PCS; 2016-12-27 07:45)
PROC: 30233N1 Transfusion of Nonautologous Red Blood Cells into Peripheral Vein, Percutaneous Approach (ICD-10-PCS; 2016-12-29)
DX: M17.12 Unilateral primary osteoarthritis, left knee (principal); D62 Acute posthemorrhagic anemia; D69.59 Other secondary thrombocytopenia; K70.40 Alcoholic hepatic failure without coma; F10.288 Alcohol dependence with other alcohol-induced disorder; F10.239 Alcohol dependence with withdrawal, unspecified; M65.862 Other synovitis and tenosynovitis, left lower leg; E78.5 Hyperlipidemia, unspecified; I10 Essential (primary) hypertension; Z96.651 Presence of right artificial knee joint; F32.9 Major depressive disorder, single episode, unspecified; F41.9 Anxiety disorder, unspecified; Z87.891 Personal history of nicotine dependence

== ENCOUNTER 2017-02-01 16:20 | Inpatient (IN) | payer OTHER ==
[2017-02-01 16:20] VITALS: BMI 25.7
--- NOTE | 2017-02-01 17:14 | ED PDOC ---
Lower Extremity Pain/Injury Time Seen by Provider: 02/01/17 16:48 Chief Complaint (Nursing): Lower Extremity Problem/Injury Chief Complaint (Provider): LEFT knee swelling History Per: Patient Onset/Duration Of Symptoms: Days (3) Additional Complaint(s): Progressive swelling to LEFT knee and then developed drainage yesterday Reports feeling "flu-boogie" with mild sore throat. Post op LEFT knee replacement by Dr Hendrix 12/27 Had been applying NSAID ointment to LEFT knee as directed by his brother. Past Medical History Reviewed: Historical Data, Nursing Documentation, Vital Signs Vital Signs: Last Vital Signs Temp 99.2 F 02/01/17 16:41 Pulse 106 H 02/01/17 16:41 Resp 20 02/01/17 16:41 BP 90/59 L 02/01/17 16:41 Pulse Ox 98 02/01/17 16:41 - Medical History PMH: Anxiety, Arthritis, Depression, HTN, Hypercholesterolemia Denies: Chronic Kidney Disease - Family History Family History: States: No Known Family Hx - Social History Alcohol: Other (Alcoholism) - Home Medications Home Medications: Ambulatory Orders Medication Instructions Recorded Silodosin [Rapaflo] 8 mg PO DAILY 12/27/16 Simvastatin [Zocor] 20 mg PO HS 12/27/16 Calcium Carbonate [Calcium] 500 mg PO DAILY 02/01/17 Lorazepam [Ativan] 0.5 mg PO Q12H PRN 02/01/17 Magnesium Oxide [Mag-Ox] 400 mg PO DAILY 02/01/17 Multivitamin [Multi-Vitamin Daily] 1 tab PO DAILY 02/01/17 Pantoprazole Sodium [Protonix] 20 mg PO BID 02/01/17 Acetaminophen [Tylenol 325mg tab] 650 mg PO Q4 PRN tab 02/04/17 Calcium Carbonate [Oscal] 500 mg PO DAILY tab 02/04/17 Cefepime 1gm in NS 50ml [Cefepime 1 gm IVPB Q12 #60 bag 02/04/17 1gm] Docusate Sodium [Colace] 100 mg PO BID #60 capsule 02/04/17 Enoxaparin [Lovenox] 40 mg SC DAILY syr 02/04/17 Ferrous Sulfate [Feosol] 325 mg PO BID tab 02/04/17 Vancomycin/0.9 % Sod Chloride 1 gm IV DAILY #30 plast..bag 02/04/17 [Vanco 1 Gram/250 ml-0.9% NaCl] chlordiazePOXIDE [Librium] 10 mg PO Q6 cap 02/04/17 oxyCODONE/Acetaminophen [Percocet 1 tab PO Q4 PRN #30 tab 02/04/17 5/325 mg Tab] - Allergies Allergies/Adverse Reactions: Allergies Allergy/AdvReac Type Severity Reaction Status Date / Time silk AdvReac BLISTER Verified 12/24/16 08:42 Review of Systems ROS Statement: Except As Marked, All Systems Reviewed And Found Negative (and as per HPI) Constitutional: Positive for: Chills, Malaise ENT: Positive for: Throat Pain Musculoskeletal: Positive for: Leg Pain. Negative for: Neck Pain, Back Pain Skin: Positive for: Lesions Physical Exam - Reviewed Nursing Documentation Reviewed: Yes Vital Signs Reviewed: Yes - Physical Exam Appears: Positive for: Non-toxic, In Acute Distress (mild painful) Head Exam: Positive for: ATRAUMATIC, NORMOCEPHALIC Skin: Positive for: Warm, Dry Eye Exam: Positive for: EOMI, PERRL, Conjunctival injection ENT: Positive for: Other (tacky mucus membranes) Neck: Positive for: Painless ROM, Supple Cardiovascular/Chest: Positive for: Tachycardia. Negative for: Murmur Respiratory: Positive for: Normal Breath Sounds. Negative for: Respiratory Distress Gastrointestinal/Abdominal: Positive for: Soft. Negative for: Tenderness Back: Positive for: Normal Inspection Extremity: Positive for: Other (LEFT knee: erythema and edema, mild ttp, slightly dehisced surgical wound) Neurologic/Psych: Positive for: Alert. Negative for: Motor/Sensory Deficits - Laboratory Results Result Diagrams: 02/04/17 06:25 02/04/17 06:25 - ECG O2 Sat by Pulse Oximetry: 98 Medical Decision Making Medical Decision Making: ANIA Cano and Dr Zuñiga Hospitalist Pt needs hospitalization for knee infection requiring IV antibiotics and surgical intervention Disposition - Clinical Impression Clinical Impression: Status post knee replacement, Discharge from wound - Disposition Disposition Time: 17:00 Condition: SERIOUS - Pt Status Changed To: Hospital Disposition Of: Inpatient - Admit Certification Admit to Inpatient:: After my assessment, the patient will require hospitalization for at least two midnights. This is because of the severity of symptoms shown, intensity of services needed, and/or the medical risk in this patient being treated as an outpatient. - POA Present On Arrival: Surgical Site Infection
[2017-02-01 17:36] LABS: ALCOHOL SERUM < 10 mg/dl (0-10); ALKALINE PHOSPHATASE 67 U/L (38-126); ALT/SGPT 36 U/L (21-72); AST/SGOT 29 U/L (17-59); BLOOD UREA NITROGEN 44 mg/dl (9-20); CALCIUM 8.9 mg/dL (8.4-10.2); CARBON DIOXIDE 24 mmol/L (22-30); CHLORIDE 103 mmol/L (98-107); GFR AFRICAN-AMERICAN 32; GLUCOSE,RANDOM 127 mg/dL (75-110); POTASSIUM 3.4 MMOL/L (3.6-5.0); SODIUM 138 mmol/l (132-148); TOTAL PROTEIN 6.9 G/DL (6.3-8.2)
[2017-02-01 17:40] LABS: BASO % 0.2 % (0.0-2.0); EOS # 0.1 K/uL (0.0-0.7); EOS % 1.6 % (0.0-4.0); LYMPH # 0.3 K/uL (1.0-4.3); LYMPH % 4.2 % (20.0-40.0); MEAN CELL VOLUME 98.6 fl (80.0-94.0); MEAN CORPUSCULAR HEMOGLOBIN 32.1 pg (27.0-31.0); MEAN CORPUSCULAR HGB CONC 32.6 g/dL (33.0-37.0); MONO % 15.5 % (0.0-10.0); NEUT # 5.3 K/uL (1.8-7.0); NEUT % 78.5 % (50.0-75.0); PLATELET COUNT 99 K/uL (130-400); RED CELL DISTRIBUTION WIDTH 16.1 % (11.5-14.5); WHITE BLOOD COUNT 6.8 K/uL (4.8-10.8)
[2017-02-01 17:49] LABS: PARTIAL THROMBOPLASTIN TIME 32.2 Seconds (25.6-37.1)
[2017-02-01] MEDS ORDERED: Thiamine 100 mg/ml Inj IM ONE (18:11)
--- NOTE | 2017-02-01 18:14 | CP.PCM.HP ---
History of Present Illness - History of Present Illness History of Present Illness: Chief Complaint : Left knee drainage , recent TKR 1 month ago HPI : 61 y/o gent with hx of Alcoholism, HTN, Hyperlipidemia, BPH, OA s/p Left TKR , came in bec of left knee drainage. The patient had Left TKR December. He did well post op , he had no complications however during his stay , he was noted to have signs and symptoms of Alcohol withdrawal. He was discharge to a Subacute Rehab for Physical therapy. Accvording to the patient , he was dpoing well with PT and was discharged Home on January 10 and continued Outpatient physical therapy. Patient was fine however last Tuesday (January 28) he peeled off a scab from the wound, when he woke up the following day, he had a slight fever , and started having knee pain and drainage. Noticed drainage to increase last Tuesday so he went to [facility] ED where they gave him a dose of antibiotics and sent him home to ff up with Dr Hendrix. He went to see Dr Hendrix this morning and was advised admission for further evaluation . Present on Admission - Present on Admission Any Indicators Present on Admission: Yes History Surgical Site Infection Following: Orthopedic Procedures (left knee drainage , hx of TKR , need to r/o infection) Review of Systems - Review of Systems All systems: reviewed and no additional remarkable complaints except - Constitutional Constitutional: Fever. absent: Chills - EENT Eyes: absent: Change in Vision Ears: absent: Ear Discharge, Ear Pain Nose/Mouth/Throat: Sore Throat. absent: Nasal Congestion, Nasal Discharge - Cardiovascular Cardiovascular: absent: Chest Pain, Dyspnea on Exertion, Orthopnea, Palpitations , Paroxysmal Nocturnal Dyspnea, Pedal Edema - Respiratory Respiratory: absent: Cough, Dyspnea, Dyspnea on Exertion, Wheezing - Gastrointestinal Gastrointestinal: absent: Abdominal Pain, Nausea, Vomiting - Genitourinary Genitourinary: Nocturia, Urinary Frequency. absent: Dysuria - Musculoskeletal Musculoskeletal: Arthralgias. absent: Back Pain - Integumentary Integumentary: absent: Pruritus, Rash Additional comments: l - Neurological Neurological: absent: Dizziness, Focal Weakness, Headaches - Psychiatric Psychiatric: Anxiety. absent: Depression - Endocrine Endocrine: absent: Polydipsia, Polyphagia, Polyuria - Hematologic/Lymphatic Hematologic: Easy Bruising. absent: Easy Bleeding Past Patient History - Infectious Disease Hx of Infectious Diseases: None - Tetanus Immunizations Tetanus Immunization: Unknown - Past Medical History & Family History Past Medical History?: Yes Pertinent Family History: Mother - HTN Father - Cancer , unknown what - Past Social History Smoking Status: Never Smoked Chewing Tobacco Use: No Cigar Use: No Alcohol: > 2 Drinks/Day (Alcoholism) Drugs: Denies Home Situation {Lives}: With Family - CARDIAC Hx Hypercholesterolemia: Yes Hx Hypertension: Yes - PULMONARY Hx Respiratory Disorders: No - NEUROLOGICAL Hx Neurological Disorder: No - HEENT Hx HEENT Problems: No - RENAL Hx Chronic Kidney Disease: No - ENDOCRINE/METABOLIC Hx Endocrine Disorders: No Hx Adrenal Cancer: No (Hx of adrenal mass - left adrenalectomy) - HEMATOLOGICAL/ONCOLOGICAL Hx Blood Disorders: No - INTEGUMENTARY Hx Dermatological Problems: No - MUSCULOSKELETAL/RHEUMATOLOGICAL Hx Arthritis: Yes Hx Degenerative Joint Disease: Yes - GASTROINTESTINAL Hx Gastrointestinal Disorders: Yes (Hx of Parekh's esophagus) - GENITOURINARY/GYNECOLOGICAL Hx Genitourinary Disorders: No - PSYCHIATRIC Hx Anxiety: Yes Hx Depression: Yes - SURGICAL HISTORY Hx Surgeries: Yes Hx Arthroscopy: Yes (RIGHT KNEE) Hx Orthopedic Surgery: Yes (left Clavicular fracture surgery, left TKR) - ANESTHESIA Hx Anesthesia: Yes Hx Anesthesia Reactions: No Hx Malignant Hyperthermia: No Meds Allergies/Adverse Reactions: Allergies Allergy/AdvReac Type Severity Reaction Status Date / Time silk AdvReac BLISTER Verified 12/24/16 08:42 Physical Exam - Constitutional Appears: Other (has slight hand tremor) - Head Exam Head Exam: NORMAL INSPECTION, NORMOCEPHALIC - Eye Exam Eye Exam: EOMI, Normal appearance Pupil Exam: NORMAL ACCOMODATION - ENT Exam ENT Exam: Mucous Membranes Moist, Normal External Ear Exam, Normal Oropharynx - Neck Exam Neck exam: Positive for: Full Rom. Negative for: Meningismus - Respiratory Exam Respiratory Exam: NORMAL BREATHING PATTERN. absent: Respiratory Distress - Cardiovascular Exam Cardiovascular Exam: REGULAR RHYTHM, +S1, +S2 - GI/Abdominal Exam GI & Abdominal Exam: Normal Bowel Sounds, Soft. absent: Tenderness - Extremities Exam Extremities exam: Positive for: normal capillary refill, pedal pulses present. Negative for: calf tenderness Additional comments: left knee sl swelling and erythema, post op changes, noted serosanguinous drainage from a small opening - Back Exam Back exam: FULL ROM, NORMAL INSPECTION. absent: CVA tenderness (L), CVA tenderness (R), vertebral tenderness - Neurological Exam Neurological exam: Alert, CN II-XII Intact, Oriented x3, Reflexes Normal - Psychiatric Exam Psychiatric exam: Normal Affect, Normal Mood - Skin Skin Exam: Dry, Normal Color, Warm Results - Vital Signs Recent Vital Signs: Last Vital Signs Temp 99.2 F 02/01/17 16:41 Pulse 106 H 02/01/17 16:41 Resp 20 02/01/17 16:41 BP 90/59 L 02/01/17 16:41 Pulse Ox 98 02/01/17 17:19 - Labs Result Diagrams: 02/01/17 17:18 02/01/17 17:18 Labs: Laboratory Results - last 24 hr 02/01/17 02/01/17 02/01/17 17:18 17:18 17:18 WBC 6.8 RBC 3.14 L Hgb 10.1 L Hct 31.0 L MCV 98.6 H D MCH 32.1 H MCHC 32.6 L RDW 16.1 H Plt Count 99 L MPV 9.0 Neut % (Auto) 78.5 H Lymph % (Auto) 4.2 L [place] % (Auto) 15.5 H Eos % (Auto) 1.6 Baso % (Auto) 0.2 Neut # 5.3 Lymph # 0.3 L [place] # 1.0 H Eos # 0.1 Baso # 0.0 PT 14.1 H INR 1.2 APTT 32.2 Sodium 138 Potassium 3.4 L Chloride 103 Carbon Dioxide 24 Anion Gap 14 BUN 44 H Creatinine 2.5 H Est GFR ( Amer) 32 Est GFR (Non-Af Amer) 26 Random Glucose 127 H Calcium 8.9 Total Bilirubin 1.0 AST 29 ALT 36 Alkaline Phosphatase 67 Total Protein 6.9 Albumin 3.5 Globulin 3.4 Albumin/Globulin Ratio 1.0 Alcohol, Quantitative < 10 - EKG Data EKG Interpreted by: Myself EKG shows normal: Sinus rhythm Rate: Normal - EKG Data When Compared to Previous EKG: No Significant Change Assessment & Plan (1) Infection of left knee Status: Suspected (2) Status post knee replacement Status: Acute (3) Primary osteoarthritis of left knee Status: Chronic (4) Alcoholic liver disease Status: Chronic (5) HTN (hypertension) Status: Chronic (6) Thrombocytopenia Status: Chronic (7) DVT prophylaxis Status: Acute - Assessment and Plan (Free Text) Assessment: 61 y/o gent with known hx of Alcoholism, Chronic Liver Dis with Thrombocytopenia , hx of HTN, Hyperlipidemia, BPH, and OA, s/p Left TKR December. The patient was discharge to [facility] on DEC 29 . He was fine on discharge, until Tuesday , he peeled off scab from his surgical wound , and woke up the following day with some fever, and drainage from the left knee TKR wound. (1) r/o Infection of left knee ,history of TKR December 27 Status: Suspected Pt some serosanguinous drainage from the site of left knee TKR no fever at present, no leukocytosis Knee Xray Ortho consult - Dr Hendrix Wound c/s, Blood c/s ID consult - discussed case with Dr Olmedo - quna to start IV Zyvox and Cefepime Pt may need Incision and drainage (2) Status post knee replacement Status: Subacute TKR done Dec 27 , pt was doing well until a few days ago (3) Primary osteoarthritis of left knee Status: Chronic (4) Alcoholic liver disease Status: Chronic sec to Alcoholism Pt follows up with a GI specialist in [facility] 5. [facility] Creatinine was normal on discharge a month ago Renal Sonogram IVF hydration 6. Alcohol Withdrawal Start Ativan prn Librium RTC start Thiamine Urine drug screen (7) HTN (hypertension) Status: Chronic hold antihypertensiives as BP low normal (8) Thrombocytopenia sec to Liver dis /Alcohol Status: Chronic Platelet 99 monitor closely 9. BPH start Flomax ( pt on Rapaflo at home ) (10) DVT prophylaxis Status: Acute SCD for now - sched for Incision and drainage Decision To Admit - Pt Status Changed To: Hospital Disposition Of: Inpatient - Admit Certification Admit to Inpatient:: After my assessment, the patient will require hospitalization for at least two midnights. This is because of the severity of symptoms shown, intensity of services needed, and/or the medical risk in this patient being treated as an outpatient. - . Bed Request Type: Med/Surg Admitting Physician: Elba Valerio
--- NOTE | 2017-02-01 18:47 | RAD ---
HISTORY: fever COMPARISON: None available. TECHNIQUE: Chest, one view. FINDINGS: LUNGS: Limited visualization of the lung apices with probable pleural thickening. Otherwise, no focal consolidation. Please note that chest x-ray has limited sensitivity for the detection of pulmonary masses. PLEURA: No significant pleural effusion identified. No definite pneumothorax . CARDIOVASCULAR: Heart size appears top normal. Ectatic aorta. OSSEOUS STRUCTURES: Postsurgical changes left coracoclavicular join. Right lower lateral rib deformities appear chronic. Degenerative changes of the spine. VISUALIZED UPPER ABDOMEN: Unremarkable. OTHER FINDINGS: None. IMPRESSION: Limited visualization of the lung apices with probable pleural thickening.
--- NOTE | 2017-02-01 18:57 | RAD ---
PROCEDURE: Left Knee Radiographs. HISTORY: COMPARISON: None available. FINDINGS: BONES: Left knee arthroplasty. No acute displaced fracture. JOINTS: No dislocation. JOINT EFFUSION: Suprapatellar joint effusion. OTHER FINDINGS: Marked soft tissue swelling. IMPRESSION: Marked soft tissue swelling. Suprapatellar joint effusion. Left knee arthroplasty hardware.
[2017-02-01 19:02] LABS: URINE BACTERIA RARE (<OCC); URINE BILIRUBIN NEGATIVE (NEGATIVE); URINE BLOOD SMALL (NEGATIVE); URINE COLOR AMBER (YELLOW); URINE GLUCOSE (UA) NEG (Normal); URINE KETONE NEGATIVE (NEGATIVE); URINE LEUKOCYTE ESTERASE NEG Leu/uL (Negative); URINE PROTEIN 100 mg/dL (NEGATIVE); URINE UROBILINOGEN 0.2-1.0 mg/dL (0.2-1.0)
[2017-02-01 19:05] LABS: RBC URINE 13 /hpf (0-3); WBC URINE 8 /hpf (0-5)
[2017-02-01 19:22] LABS: EOSINOPHIL 2 % (0-7); NEUTROPHIL 73 % (42-75); TOTAL CELLS COUNTED 100
[2017-02-01 19:24] LABS: LARGE PLATELETS PRESENT
[2017-02-01] MEDS: Dextrose 5%/0.9% NS 1,000 ML IV SCH (20:50)
[2017-02-01] MEDS: Linezolid 600 mg in D5W 300 ml 600 MG/300 ML BAG IVPB SCH (22:37)
[2017-02-02] MEDS: Dextrose 5%/0.9% NS 1,000 ML IV SCH ×2 (05:30→15:50)
[2017-02-02 06:58] LABS: CALCIUM 8.7 mg/dL (8.4-10.2); POTASSIUM 3.1 MMOL/L (3.6-5.0)
[2017-02-02 07:07] LABS: BASO % 0.2 % (0.0-2.0); EOS # 0.1 K/uL (0.0-0.7); HEMATOCRIT 28.1 % (35.0-51.0); LYMPH # 0.3 K/uL (1.0-4.3); LYMPH % 5.3 % (20.0-40.0); MEAN CELL VOLUME 97.5 fl (80.0-94.0); MEAN CORPUSCULAR HEMOGLOBIN 32.6 pg (27.0-31.0); MEAN CORPUSCULAR HGB CONC 33.5 g/dL (33.0-37.0); MONO # 1.3 K/uL (0.0-0.8); MONO % 23.9 % (0.0-10.0); NEUT # 3.8 K/uL (1.8-7.0); NEUT % 68.6 % (50.0-75.0); NRBC % 0.2 % (0.0-0.0); PLATELET COUNT 115 K/uL (130-400); WHITE BLOOD COUNT 5.5 K/uL (4.8-10.8)
--- NOTE | 2017-02-02 08:07 | CARD ---
APPROVED REPORT EKG Measurement Heart [id number] <Conclusion> Normal sinus rhythm Normal ECG
--- NOTE | 2017-02-02 08:36 | CP.PCM.PN ---
<Marco Antonio Caldwell - Last Filed: 02/02/17 14:32> Subjective - Date & Time of Evaluation Date of Evaluation: 02/02/17 Time of Evaluation: 08:36 - Subjective Subjective: Hospitalist Progress Note 61 year old male patient PMHx alcoholism, HTN, HLD, BPH, OA s/p left TKR 1 month. Patient OOB in chair, hemodynamically stable and NAD. Patient denies any acute events overnight. Admits to mild pain at surgical site, well-controlled. Able to ambulate with assistance of walker without issues. Denies N/V/F/D/C/SOB/ palpitations/abd pain. Objective - Vital Signs/Intake and Output Vital Signs (last 24 hours): Temp Pulse Resp BP Pulse Ox 99.2 F 77 20 97/66 L 98 02/02/17 00:31 02/02/17 00:31 02/02/17 00:31 02/02/17 00:31 02/02/17 00:31 - Medications Medications: Current Medications Calcium Carbonate (Oscal) 500 mg PO DAILY [facility] Chlordiazepoxide (Librium) 10 mg PO Q6 [facility] Last Admin: 02/02/17 04:27 Dose: 10 mg Ferrous Sulfate (Feosol) 325 mg PO BID [facility] Linezolid (Zyvox 600mg/300ml D5w) 600 mg in 300 mls @ 300 mls/hr IVPB Q12 [facility] PRN Reason: Protocol Last Admin: 02/01/17 22:37 Dose: 300 mls/hr Cefepime HCl 0.500 gm/ Sodium (Chloride) 50 mls @ 50 mls/hr IVPB Q12 [facility] PRN Reason: Protocol Last Admin: 02/01/17 22:00 Dose: Not Given Dextrose/Sodium Chloride (Dextrose 5%/0.9% Ns 1000 Ml) 1,000 mls @ 100 mls/hr IV .Q10H [facility] Stop: 02/02/17 18:48 Last Admin: 02/02/17 05:30 Dose: Not Given Potassium Chloride 10 meq/ (Sodium Chloride) 55 mls @ 55 mls/hr IV Q1 [facility] Stop: 02/02/17 11:59 Lorazepam (Ativan) 1 mg IVP Q4 PRN PRN Reason: Symptoms of alcohol withdrawl Last Admin: 02/01/17 20:47 Dose: 1 mg Multivitamins/Minerals (Therapeutic-M Tab) 1 tab PO DAILY [facility] Oxycodone/Acetaminophen (Percocet 5/325 Mg Tab) 1 tab PO Q4 PRN PRN Reason: Pain, severe (8-10) Stop: 02/04/17 18:50 Pantoprazole Sodium (Protonix Ec Tab) 20 mg PO BID [facility] Tamsulosin HCl (Flomax) 0.4 mg PO HS [facility] Last Admin: 02/01/17 22:32 Dose: 0.4 mg - Labs Labs: 02/02/17 05:25 02/02/17 05:25 PT 14.1 Seconds (9.8-13.1) H 02/01/17 17:18 INR 1.2 (0.9-1.2) 02/01/17 17:18 APTT 32.2 Seconds (25.6-37.1) 02/01/17 17:18 - Constitutional Appears: Well, Non-toxic, No Acute Distress - Head Exam Head Exam: ATRAUMATIC, NORMAL INSPECTION, NORMOCEPHALIC - Eye Exam Eye Exam: EOMI, Normal appearance Pupil Exam: NORMAL ACCOMODATION - ENT Exam ENT Exam: Mucous Membranes Moist, Normal Exam, Normal External Ear Exam - Neck Exam Neck Exam: Full ROM, Normal Inspection. absent: Meningismus - Respiratory Exam Respiratory Exam: NORMAL BREATHING PATTERN. absent: Accessory Muscle Use, Respiratory Distress - Cardiovascular Exam Cardiovascular Exam: REGULAR RHYTHM, +S1. absent: Gallop, JVD, Rubs, Murmur - GI/Abdominal Exam GI & Abdominal Exam: Soft, Normal Bowel Sounds. absent: Distended, Guarding, Tenderness - Rectal Exam Rectal Exam: Deferred - Extremities Exam Extremities Exam: Normal Capillary Refill. absent: Full ROM Additional comments: Non-pitting edema and erythema to left knee with small opening at proximal aspect of cicatrix. Approximately 2cc serosanguinous drainage able to be expressed from opening - Neurological Exam Neurological Exam: Alert, Awake, Oriented x3. absent: Normal Gait - Psychiatric Exam Psychiatric exam: Normal Affect, Normal Mood - Skin Skin Exam: Erythema Additional comments: Increased warmth to left knee Assessment and Plan - Assessment and Plan (Free Text) Assessment: 61 y/o gent with known hx of Alcoholism, Chronic Liver Dis with Thrombocytopenia , hx of HTN, Hyperlipidemia, BPH, and OA, s/p Left TKR December 27, 2016. The patient was discharged to [facility] on DEC 29. He was fine on discharge, applying topical pain reliever onto surgical site, until Tuesday01/28/17 when he peeled off scab from his surgical wound, and woke up the following day with some fever , and drainage from the left knee TKR wound. (1) r/o Infection of left knee, history of TKR December 27 Status: Suspected Ortho consult - Dr. Hendrix following Approximately 2cc of serosanguinous drainage able to be expressed from knee No fever at present, no leukocytosis Knee Xray reveals TKR hardware intact, ST swelling with suprapatellar joint effusion Awaiting knee CT report Wound c/s pending Blood c/s received, pending ID consult - discussed case with Dr Olmedo - quan to start IV Zyvox and Cefepime Patient for knee I&D today with Dr. Hendrix -Dr. Brothers consulted for cardiac clearance; pt cleared for surgery once K+ corrected NPO (2) Status post knee replacement Status: Subacute TKR done Dec 27, pt was doing well until a few days ago (3) Primary osteoarthritis of left knee Status: Chronic (4) Alcoholic liver disease Status: Chronic sec to Alcoholism Pt follows up with a GI specialist in [facility] (5) [facility] Creatinine was normal on discharge a month ago Cr 02/02 1.5 Renal Sonogram IVF hydration (6) Alcohol Withdrawal Start Ativan prn Librium RTC start Thiamine Urine drug screen (7) HTN (hypertension) Status: Chronic hold antihypertensiives as BP low normal (8) Thrombocytopenia sec to Liver dis /Alcohol Status: Chronic Platelet count improving, 115 today monitor closely (9) BPH start Flomax ( pt on Rapaflo at home ) PSA increased - 7.80 f/u Free PSA (10) Hypokalemia K+ decreasing - 3.1 this AM KCl ordered f/u noon BMP - K = 3.4 Will monitor closely (11) DVT prophylaxis Status: Acute SCD for now - sched for Incision and drainage <Elba Valerio - Last Filed: 02/02/17 15:53> Objective - Vital Signs/Intake and Output Vital Signs (last 24 hours): Temp Pulse Resp BP Pulse Ox 99.3 F 91 H 20 127/79 98 02/02/17 08:38 11/29/17 08:38 02/02/17 08:38 02/02/17 08:38 02/02/17 08:38 - Medications Medications: Current Medications Calcium Carbonate (Oscal) 500 mg PO DAILY [facility] Last Admin: 02/02/17 09:00 Dose: Not Given Chlordiazepoxide (Librium) 10 mg PO Q6 [facility] Last Admin: 02/02/17 09:55 Dose: 10 mg Ferrous Sulfate (Feosol) 325 mg PO BID [facility] Last Admin: 02/02/17 09:55 Dose: 325 mg Linezolid (Zyvox 600mg/300ml D5w) 600 mg in 300 mls @ 300 mls/hr IVPB Q12 [facility] PRN Reason: Protocol Last Admin: 02/02/17 09:16 Dose: 300 mls/hr Cefepime HCl 0.500 gm/ Sodium (Chloride) 50 mls @ 50 mls/hr IVPB Q12 [facility] PRN Reason: Protocol Last Admin: 02/02/17 09:16 Dose: 50 mls/hr Dextrose/Sodium Chloride (Dextrose 5%/0.9% Ns 1000 Ml) 1,000 mls @ 100 mls/hr IV .Q10H [facility] Stop: 02/02/17 18:48 Last Admin: 02/02/17 05:30 Dose: Not Given Lorazepam (Ativan) 1 mg IVP Q4 PRN PRN Reason: Symptoms of alcohol withdrawl Last Admin: 02/01/17 20:47 Dose: 1 mg Multivitamins/Minerals (Therapeutic-M Tab) 1 tab PO DAILY [facility] Last Admin: 02/02/17 09:00 Dose: Not Given Oxycodone/Acetaminophen (Percocet 5/325 Mg Tab) 1 tab PO Q4 PRN PRN Reason: Pain, severe (8-10) Stop: 02/04/17 18:50 Last Admin: 02/02/17 09:55 Dose: 1 tab Pantoprazole Sodium (Protonix Ec Tab) 20 mg PO BID [facility] Last Admin: 02/02/17 10:54 Dose: Not Given Tamsulosin HCl (Flomax) 0.4 mg PO HS [facility] Last Admin: 02/01/17 22:32 Dose: 0.4 mg - Labs Labs: 02/02/17 05:25 02/02/17 12:39 PT 14.1 Seconds (9.8-13.1) H 02/01/17 17:18 INR 1.2 (0.9-1.2) 02/01/17 17:18 APTT 32.2 Seconds (25.6-37.1) 02/01/17 17:18 Assessment and Plan (1) Infection of left knee Status: Suspected (2) Status post knee replacement Status: Acute (3) Primary osteoarthritis of left knee Status: Chronic (4) Alcoholic liver disease Status: Chronic (5) HTN (hypertension) Status: Chronic (6) Thrombocytopenia Status: Chronic (7) DVT prophylaxis Status: Acute Attending/Attestation - Attestation I have personally seen and examined this patient.: Yes I have fully participated in the care of the patient.: Yes I have reviewed all pertinent clinical information, including history, physical exam and plan: Yes Notes (Text): Rpt Potassium 3.3 after 2 KCl IV runs, will give 2 more runs Creatinine improved with hydration, Crea now 1.2 PSA elevated - advised pt to ff up with his Urologist on d/c , pt on Rapaflo at home
[2017-02-02] MEDS: Multivitamin With Minerals Tab PO SCH (09:00)
[2017-02-02] MEDS: Linezolid 600 mg in D5W 300 ml 600 MG/300 ML BAG IVPB SCH ×2 (09:16→21:50)
[2017-02-02] MEDS: Oxycodone/Acetaminophen 5/325 mg Tab PO PRN (09:55)
[2017-02-02] MEDS: Pantoprazole 20 mg EC Tab PO SCH ×2 (10:54→17:06)
--- NOTE | 2017-02-02 10:54 | CP.PCM.CON ---
History of Present Illness - History of Present Illness History of Present Illness: THE PATIENT IS A 61 YEAR OLD MALE WHO UNDERWENT A LEFT TKR LAST MONTH AT [facility] WHO IS NOW ADMITTED WITH A SURGICAL SITE WOUND OPENING WITH A DISCHARGE AND WILL BE BROUGHT TO THE OR LATER TODAY BY DR SOFIA. HE STATES THAT IT STARTED ON 01/30/17 AND HE WENT TO A LOCAL ER AND WAS GIVEN ORAL ANTIBIOTICS AND WAS SENT HOME. HE CALLED DR SOFIA YESTERDAY AND WAS ADVISED TO COME TO [facility] AND HE WAS STARTED ON IV ANTIBIOTICS AND WILL HAVE SURGERY TODAY. HE STATES THAT HE HAS HYPERTENSION AND HYPERLIPIDEMIA. HE WAS ALSO A DRINKER AND STATES HE WAS TOLD HE HAS A FATTY LIVER AND HE CUT DOWN ON ETOH USE BUT STILL DRINKS WINE. CARDIOLOGY WAS ASKED TO SEE HIM PRE-OP AND FOLLOW HIM ON THIS ADMISSION. HE DENIES CHEST PAIN OR A CAD HISTORY. Past Patient History - Infectious Disease Hx of Infectious Diseases: None - Tetanus Immunizations Tetanus Immunization: Unknown - Past Medical History & Family History Past Medical History?: Yes - Past Social History Smoking Status: Never Smoked - CARDIAC Hx Cardiac Disorders: Yes Hx Hypercholesterolemia: Yes Hx Hypertension: Yes - PULMONARY Hx Respiratory Disorders: No Hx Asthma: No - NEUROLOGICAL Hx Neurological Disorder: No - HEENT Hx HEENT Problems: No - RENAL Hx Chronic Kidney Disease: No - ENDOCRINE/METABOLIC Hx Endocrine Disorders: No Hx Diabetes Mellitus Type 2: No - HEMATOLOGICAL/ONCOLOGICAL Hx Blood Disorders: No Hx AIDS: No Hx Hepatitis C: No Hx Human Immunodeficiency Virus (HIV): No - INTEGUMENTARY Hx Dermatological Problems: No - MUSCULOSKELETAL/RHEUMATOLOGICAL Hx Musculoskeletal Disorders: Yes Hx Arthritis: Yes Hx Falls: Yes (12 years ago, hx of etoh abuse) Hx Fractures: Yes (fell 12 yrs ago fx 2 ribs R side) Hx Osteoarthritis: Yes - GASTROINTESTINAL Hx Gastrointestinal Disorders: Yes (Hx of Parekh's esophagus) - GENITOURINARY/GYNECOLOGICAL Hx Genitourinary Disorders: Yes Hx Prostate Problems: Yes (BPH diagnosed 1 yr ago) - PSYCHIATRIC Hx Psychophysiologic Disorder: Yes Hx Anxiety: Yes Hx Depression: Yes Hx Substance Use: No Other/Comment: alcoholism/ etoh abuse - SURGICAL HISTORY Hx Surgeries: Yes Hx Arthroscopy: Yes (L TKR 12/27/16) Hx Orthopedic Surgery: Yes (left Clavicular fracture surgery, left TKR) - ANESTHESIA Hx Anesthesia: Yes Hx Anesthesia Reactions: No Hx Malignant Hyperthermia: No Meds Allergies/Adverse Reactions: Allergies Allergy/AdvReac Type Severity Reaction Status Date / Time silk AdvReac BLISTER Verified 12/24/16 08:42 - Medications Medications: Current Medications Calcium Carbonate (Oscal) 500 mg PO DAILY [facility] Chlordiazepoxide (Librium) 10 mg PO Q6 [facility] Last Admin: 02/02/17 09:55 Dose: 10 mg Ferrous Sulfate (Feosol) 325 mg PO BID [facility] Last Admin: 02/02/17 09:55 Dose: 325 mg Linezolid (Zyvox 600mg/300ml D5w) 600 mg in 300 mls @ 300 mls/hr IVPB Q12 [facility] PRN Reason: Protocol Last Admin: 02/02/17 09:16 Dose: 300 mls/hr Cefepime HCl 0.500 gm/ Sodium (Chloride) 50 mls @ 50 mls/hr IVPB Q12 [facility] PRN Reason: Protocol Last Admin: 02/02/17 09:16 Dose: 50 mls/hr Dextrose/Sodium Chloride (Dextrose 5%/0.9% Ns 1000 Ml) 1,000 mls @ 100 mls/hr IV .Q10H [facility] Stop: 02/02/17 18:48 Last Admin: 02/02/17 05:30 Dose: Not Given Potassium Chloride 10 meq/ (Sodium Chloride) 55 mls @ 55 mls/hr IV Q1 [facility] Stop: 02/02/17 11:59 Lorazepam (Ativan) 1 mg IVP Q4 PRN PRN Reason: Symptoms of alcohol withdrawl Last Admin: 02/01/17 20:47 Dose: 1 mg Multivitamins/Minerals (Therapeutic-M Tab) 1 tab PO DAILY [facility] Oxycodone/Acetaminophen (Percocet 5/325 Mg Tab) 1 tab PO Q4 PRN PRN Reason: Pain, severe (8-10) Stop: 02/04/17 18:50 Last Admin: 02/02/17 09:55 Dose: 1 tab Pantoprazole Sodium (Protonix Ec Tab) 20 mg PO BID [facility] Tamsulosin HCl (Flomax) 0.4 mg PO HS [facility] Last Admin: 02/01/17 22:32 Dose: 0.4 mg Physical Exam - Respiratory Exam Respiratory Exam: Clear to Auscultation Bilateral - Cardiovascular Exam Cardiovascular Exam: REGULAR RHYTHM, +S1, +S2 - Extremities Exam Additional comments: DRESSING OVER LEFT KNEE - Additional Findings Additional findings: EKG NSR CXR CLEAR LUNG ARRIAGA K+ 3.1 Results - Vital Signs Recent Vital Signs: Last Vital Signs Temp 99.3 F 02/02/17 08:38 Pulse 91 H 02/02/17 08:38 Resp 20 02/02/17 08:38 BP 127/79 02/02/17 08:38 Pulse Ox 98 02/02/17 08:38 - Labs Result Diagrams: 02/02/17 05:25 02/02/17 05:25 Labs: Laboratory Results - last 24 hr 02/01/17 02/01/17 02/01/17 17:13 17:18 17:18 WBC 6.8 RBC 3.14 L Hgb 10.1 L Hct 31.0 L MCV 98.6 H D MCH 32.1 H MCHC 32.6 L RDW 16.1 H Plt Count 99 L MPV 9.0 Neut % (Auto) 78.5 H Lymph % (Auto) 4.2 L Dunn % (Auto) 15.5 H Eos % (Auto) 1.6 Baso % (Auto) 0.2 Neut # 5.3 Lymph # 0.3 L Dunn # 1.0 H Eos # 0.1 Baso # 0.0 Neutrophils % (Manual) 73 Band Neutrophils % 3 H Lymphocytes % (Manual) 7 L Monocytes % (Manual) 15 H Eosinophils % (Manual) 2 Platelet Estimate Slightly decreased L Large Platelets Present Poikilocytosis (manual Slight Anisocytosis (manual) Moderate Macrocytosis (manual) Slight Ovalocytes Slight PT INR APTT Sodium 138 Potassium 3.4 L Chloride 103 Carbon Dioxide 24 Anion Gap 14 BUN 44 H Creatinine 2.5 H Est GFR ( Amer) 32 Est GFR (Non-Af Amer) 26 POC Glucose (mg/dL) 149 H Random Glucose 127 H Lactic Acid Calcium 8.9 Total Bilirubin 1.0 AST 29 ALT 36 Alkaline Phosphatase 67 Total Protein 6.9 Albumin 3.5 Globulin 3.4 Albumin/Globulin Ratio 1.0 Prostate Specific Ag Urine Color Urine Clarity Urine pH Ur Specific [place] Urine Protein Urine Glucose (UA) Urine Ketones Urine Blood Urine Nitrate Urine Bilirubin Urine Urobilinogen Ur Leukocyte Esterase Urine RBC (Auto) Urine Microscopic WBC Ur Squamous Epith Cells Urine Bacteria Hyaline Casts Urine Opiates Screen Urine Methadone Screen Ur Barbiturates Screen Ur Phencyclidine Scrn Ur Amphetamines Screen U Benzodiazepines Scrn U Oth Cocaine Metabols U Cannabinoids Screen Alcohol, Quantitative < 10 Influenza Typ A,B (EIA) Grp A Beta Strep Ag Blood Type Antibody Screen BBK History Checked 02/01/17 02/01/17 02/01/17 17:18 18:13 18:13 WBC RBC Hgb Hct MCV MCH MCHC RDW Plt Count MPV Neut % (Auto) Lymph % (Auto) Dunn % (Auto) Eos % (Auto) Baso % (Auto) Neut # Lymph # Dunn # Eos # Baso # Neutrophils % (Manual) Band Neutrophils % Lymphocytes % (Manual) Monocytes % (Manual) Eosinophils % (Manual) Platelet Estimate Large Platelets Poikilocytosis (manual Anisocytosis (manual) Macrocytosis (manual) Ovalocytes PT 14.1 H INR 1.2 APTT 32.2 Sodium Potassium Chloride Carbon Dioxide Anion Gap BUN Creatinine Est GFR ( Amer) Est GFR (Non-Af Amer) POC Glucose (mg/dL) Random Glucose Lactic Acid 0.9 Calcium Total Bilirubin AST ALT Alkaline Phosphatase Total Protein Albumin Globulin Albumin/Globulin Ratio Prostate Specific Ag Urine Color Urine Clarity Urine pH Ur Specific [place] Urine Protein Urine Glucose (UA) Urine Ketones Urine Blood Urine Nitrate Urine Bilirubin Urine Urobilinogen Ur Leukocyte Esterase Urine RBC (Auto) Urine Microscopic WBC Ur Squamous Epith Cells Urine Bacteria Hyaline Casts Urine Opiates Screen Urine Methadone Screen Ur Barbiturates Screen Ur Phencyclidine Scrn Ur Amphetamines Screen U Benzodiazepines Scrn U Oth Cocaine Metabols U Cannabinoids Screen Alcohol, Quantitative Influenza Typ A,B (EIA) Negative for flu a/b Grp A Beta Strep Ag Blood Type Antibody Screen BBK History Checked 02/01/17 02/01/17 02/01/17 18:13 18:30 18:48 WBC RBC Hgb Hct MCV MCH MCHC RDW Plt Count MPV Neut % (Auto) Lymph % (Auto) Dunn % (Auto) Eos % (Auto) Baso % (Auto) Neut # Lymph # Dunn # Eos # Baso # Neutrophils % (Manual) Band Neutrophils % Lymphocytes % (Manual) Monocytes % (Manual) Eosinophils % (Manual) Platelet Estimate Large Platelets Poikilocytosis (manual Anisocytosis (manual) Macrocytosis (manual) Ovalocytes PT INR APTT Sodium Potassium Chloride Carbon Dioxide Anion Gap BUN Creatinine Est GFR ( Amer) Est GFR (Non-Af Amer) POC Glucose (mg/dL) Random Glucose Lactic Acid Calcium Total Bilirubin AST ALT Alkaline Phosphatase Total Protein Albumin Globulin Albumin/Globulin Ratio Prostate Specific Ag 7.80 H Urine Color Akiko Urine Clarity Cloudy Urine pH 5.0 Ur Specific [place] 1.020 Urine Protein 100 Urine Glucose (UA) Neg Urine Ketones Negative Urine Blood Small Urine Nitrate Negative Urine Bilirubin Negative Urine Urobilinogen 0.2-1.0 Ur Leukocyte Esterase Neg Urine RBC (Auto) 13 H Urine Microscopic WBC 8 H Ur Squamous Epith Cells < 1 Urine Bacteria Rare Hyaline Casts 3-5 H Urine Opiates Screen Urine Methadone Screen Ur Barbiturates Screen Ur Phencyclidine Scrn Ur Amphetamines Screen U Benzodiazepines Scrn U Oth Cocaine Metabols U Cannabinoids Screen Alcohol, Quantitative Influenza Typ A,B (EIA) Grp A Beta Strep Ag Negative Blood Type Antibody Screen BBK History Checked 02/01/17 02/01/17 02/02/17 19:46 19:52 05:25 WBC 5.5 RBC 2.89 L Hgb 9.4 L Hct 28.1 L MCV 97.5 H MCH 32.6 H MCHC 33.5 RDW 16.0 H Plt Count 115 L MPV 9.0 Neut % (Auto) 68.6 Lymph % (Auto) 5.3 L Dunn % (Auto) 23.9 H Eos % (Auto) 2.0 Baso % (Auto) 0.2 Neut # 3.8 Lymph # 0.3 L Dunn # 1.3 H Eos # 0.1 Baso # 0.0 Neutrophils % (Manual) Band Neutrophils % Lymphocytes % (Manual) Monocytes % (Manual) Eosinophils % (Manual) Platelet Estimate Large Platelets Poikilocytosis (manual Anisocytosis (manual) Macrocytosis (manual) Ovalocytes PT INR APTT Sodium Potassium Chloride Carbon Dioxide Anion Gap BUN Creatinine Est GFR ( Amer) Est GFR (Non-Af Amer) POC Glucose (mg/dL) Random Glucose Lactic Acid Calcium Total Bilirubin AST ALT Alkaline Phosphatase Total Protein Albumin Globulin Albumin/Globulin Ratio Prostate Specific Ag Urine Color Urine Clarity Urine pH Ur Specific [place] Urine Protein Urine Glucose (UA) Urine Ketones Urine Blood Urine Nitrate Urine Bilirubin Urine Urobilinogen Ur Leukocyte Esterase Urine RBC (Auto) Urine Microscopic WBC Ur Squamous Epith Cells Urine Bacteria Hyaline Casts Urine Opiates Screen Negative Urine Methadone Screen Negative Ur Barbiturates Screen Negative Ur Phencyclidine Scrn Negative Ur Amphetamines Screen Negative U Benzodiazepines Scrn Positive U Oth Cocaine Metabols Negative U Cannabinoids Screen Negative Alcohol, Quantitative Influenza Typ A,B (EIA) Grp A Beta Strep Ag Blood Type O POSITIVE Antibody Screen Negative BBK History Checked Patient has bt 02/02/17 05:25 WBC RBC Hgb Hct MCV MCH MCHC RDW Plt Count MPV Neut % (Auto) Lymph % (Auto) Dunn % (Auto) Eos % (Auto) Baso % (Auto) Neut # Lymph # Dunn # Eos # Baso # Neutrophils % (Manual) Band Neutrophils % Lymphocytes % (Manual) Monocytes % (Manual) Eosinophils % (Manual) Platelet Estimate Large Platelets Poikilocytosis (manual Anisocytosis (manual) Macrocytosis (manual) Ovalocytes PT INR APTT Sodium 136 Potassium 3.1 L Chloride 106 Carbon Dioxide 21 L Anion Gap 12 BUN 32 H Creatinine 1.5 Est GFR ( Amer) 58 Est GFR (Non-Af Amer) 48 POC Glucose (mg/dL) Random Glucose 133 H Lactic Acid Calcium 8.7 Total Bilirubin AST ALT Alkaline Phosphatase Total Protein Albumin Globulin Albumin/Globulin Ratio Prostate Specific Ag Urine Color Urine Clarity Urine pH Ur Specific [place] Urine Protein Urine Glucose (UA) Urine Ketones Urine Blood Urine Nitrate Urine Bilirubin Urine Urobilinogen Ur Leukocyte Esterase Urine RBC (Auto) Urine Microscopic WBC Ur Squamous Epith Cells Urine Bacteria Hyaline Casts Urine Opiates Screen Urine Methadone Screen Ur Barbiturates Screen Ur Phencyclidine Scrn Ur Amphetamines Screen U Benzodiazepines Scrn U Oth Cocaine Metabols U Cannabinoids Screen Alcohol, Quantitative Influenza Typ A,B (EIA) Grp A Beta Strep Ag Blood Type Antibody Screen BBK History Checked Assessment & Plan - Assessment and Plan (Free Text) Assessment: S/P LEFT KNEE SURGERY WITH WOUND SITE INFECTION HYPOKALEMIA HISTORY OF HYPERTENSION BUT HIS BLOOD PRESSURE IS GOOD PRESENTLY OFF MEDICATIONS -NO ANTIHYPERTENSIVE MEDICATION IS SEEN ON HIS HOME MEDICATION LIST HYPERLIPIDEMIA Plan: CONTINUE IV ANTIBIOTICS AND WOUND CARE KCL BEING GIVEN IV TO CORRECT HYPOKALEMIA THE PATIENT IS CLEARED FOR SURGERY ONCE HIS HYPOKALEMIA IS CORRECTED MONITOR BLOOD PRESSURE WILL RESUME SIMVASTATIN POST-OP
[2017-02-02 10:59] LABS: NEUTROPHIL 78 % (42-75); TOTAL CELLS COUNTED 100
[2017-02-02 11:00] LABS: LARGE PLATELETS PRESENT
--- NOTE | 2017-02-02 11:59 | CP.PCM.PN ---
Subjective - Date & Time of Evaluation Date of Evaluation: 02/02/17 Time of Evaluation: 11:38 - Subjective Subjective: I D NOTE(INITIAL NOTE) discussed c Hospitalist have started zyvox and maxipeme as we await cultures must follow platelets while giving zyvox Will consider change to vancomycin if renal function continues to improve and pending cultures. Objective - Vital Signs/Intake and Output Vital Signs (last 24 hours): Temp Pulse Resp BP Pulse Ox 99.3 F 91 H 20 127/79 98 02/02/17 08:38 02/02/17 08:38 02/02/17 08:38 02/02/17 08:38 02/02/17 08:38 - Medications Medications: Current Medications Calcium Carbonate (Oscal) 500 mg PO DAILY [facility] Last Admin: 02/02/17 09:00 Dose: Not Given Chlordiazepoxide (Librium) 10 mg PO Q6 [facility] Last Admin: 02/02/17 09:55 Dose: 10 mg Ferrous Sulfate (Feosol) 325 mg PO BID [facility] Last Admin: 02/02/17 09:55 Dose: 325 mg Linezolid (Zyvox 600mg/300ml D5w) 600 mg in 300 mls @ 300 mls/hr IVPB Q12 [facility] PRN Reason: Protocol Last Admin: 02/02/17 09:16 Dose: 300 mls/hr Cefepime HCl 0.500 gm/ Sodium (Chloride) 50 mls @ 50 mls/hr IVPB Q12 [facility] PRN Reason: Protocol Last Admin: 02/02/17 09:16 Dose: 50 mls/hr Dextrose/Sodium Chloride (Dextrose 5%/0.9% Ns 1000 Ml) 1,000 mls @ 100 mls/hr IV .Q10H [facility] Stop: 02/02/17 18:48 Last Admin: 02/02/17 05:30 Dose: Not Given Potassium Chloride 10 meq/ (Sodium Chloride) 55 mls @ 55 mls/hr IV Q1 [facility] Stop: 02/02/17 11:59 Lorazepam (Ativan) 1 mg IVP Q4 PRN PRN Reason: Symptoms of alcohol withdrawl Last Admin: 02/01/17 20:47 Dose: 1 mg Multivitamins/Minerals (Therapeutic-M Tab) 1 tab PO DAILY [facility] Last Admin: 02/02/17 09:00 Dose: Not Given Oxycodone/Acetaminophen (Percocet 5/325 Mg Tab) 1 tab PO Q4 PRN PRN Reason: Pain, severe (8-10) Stop: 02/04/17 18:50 Last Admin: 02/02/17 09:55 Dose: 1 tab Pantoprazole Sodium (Protonix Ec Tab) 20 mg PO BID [facility] Last Admin: 02/02/17 10:54 Dose: Not Given Tamsulosin HCl (Flomax) 0.4 mg PO HS [facility] Last Admin: 02/01/17 22:32 Dose: 0.4 mg - Labs Labs: 02/02/17 05:25 02/02/17 05:25 PT 14.1 Seconds (9.8-13.1) H 02/01/17 17:18 INR 1.2 (0.9-1.2) 02/01/17 17:18 APTT 32.2 Seconds (25.6-37.1) 02/01/17 17:18
[2017-02-02 13:01] LABS: BLOOD UREA NITROGEN 25 mg/dl (9-20); CALCIUM 8.6 mg/dL (8.4-10.2); CARBON DIOXIDE 22 mmol/L (22-30); CHLORIDE 106 mmol/L (98-107); GFR AFRICAN-AMERICAN > 60; GLUCOSE,RANDOM 132 mg/dL (75-110); POTASSIUM 3.4 MMOL/L (3.6-5.0); SODIUM 136 mmol/l (132-148)
--- NOTE | 2017-02-03 00:06 | CON ---
DATE: INFECTIOUS DISEASE CONSULTATION LOCATION: The patient is in room 663, bed 1. HISTORY OF PRESENT ILLNESS: The patient is a 61-year-old male with history of alcoholism, hypertension, hyperlipidemia, BPH, adrenal surgery according to him, and he is status post left total knee replacement. He came to the emergency room after being seen in Dr. Hendrix's office with drainage from the left knee. Patient had the total knee replacement in 12/27/2016. Apparently, he did reasonably well, went to rehab for a short stay and then went home where he continued to do well with PT. He was discharged home on 01/10 and had outpatient physiotherapy. Apparently last week, he was cleaning the area and he peeled off a scab from the wound and when he woke up the following day, he had a fever and started having knee pain and significant drainage. He told it had stopped and then after walking around a bit, it reoccurred and a significant amount of drain. He went to the [facility] Emergency Room where they gave him a dose of antibiotics and then he went to see Dr. Hendrix yesterday, who sent him to the emergency room. Patient was started, in the emergency room after discussion with myself, on Zyvox and cefepime. We will discuss this later. Cultures were taken of the drainage. Of note was that the patient's creatinine had gone up to 2.5 and upon discharge from the hospital, it had been normal. SOCIAL HISTORY: He denies smoking, but he states he drinks more than 2 drinks a day. PAST MEDICAL HISTORY: He has past history of hypertension as previously stated along with hypercholesterolemia. The patient initially stated to me he did not have fever until after the drainage and then he told me that he had fever prior to the drainage along with some chills and sweats. LABORATORY DATA: We have no cultures as yet. White count is 5.5, hemoglobin 9.4, and his platelets 199 on 02/01 and are 115 today. He has a mild left shift with 78 polys. Chemistry showed a creatinine of 2.5 and a GFR of 26 yesterday on 02/02; it is now up to normal GFR and his creatinine is 1.2. His PSA, however, is 7.80 which needs to be evaluated against his previous PSAs. Urine was negative for any drugs or alcohol. He had 13 rbc's and microscopic 8 wbc's. He also had some hyaline casts and there was some rare urine bacteria. Knee x ray showed marked soft tissue swelling, suprapatellar joint effusion, left knee arthroplasty hardware. CT scan of the knee was done, has not been read as yet. PHYSICAL EXAMINATION: GENERAL: The patient is alert, cooperative, and appears to have periods of confusion. When discussing his left total knee, he then talked about knee surgery he had in 1975 after a soccer injury. HEENT: Within normal limits. NECK: Supple. LUNGS: Clear. HEART: Regular sinus rhythm. ABDOMEN: Soft, positive bowel sounds. Liver is 2 fingers below right costal margin. EXTREMITIES: Right is within normal limits. Left shows two areas on the suture line which are draining, the superior one draining more than the inferior area. There is erythema and swelling and postop changes. The drainage is serosanguineous. IMPRESSION: Rule out infected hematoma, rule out total knee infection. At present time, he is treated with Zyvox to cover gram positives including methicillin-resistant Staphylococcus aureus and also with Maxipime to cover gram-positive bacteria. The issue here is that Zyvox has some difficulty with thrombocytopenia or decreased platelets and he does have a decreased platelet count, but he also has a change in renal function. So, for present time, we will give Zyvox and monitor the daily platelet count. Patient is scheduled to go to the OR for an incision and drainage and make decisions in regards to antibiotic treatment of the knee. Tomer Olmedo MD
[2017-02-03] MEDS: Oxycodone/Acetaminophen 5/325 mg Tab PO PRN (04:09)
[2017-02-03 06:50] LABS: BASO % 0.4 % (0.0-2.0); EOS # 0.1 K/uL (0.0-0.7); HEMATOCRIT 29.6 % (35.0-51.0); LYMPH # 0.5 K/uL (1.0-4.3); LYMPH % 11.5 % (20.0-40.0); MEAN CELL VOLUME 97.1 fl (80.0-94.0); MEAN CORPUSCULAR HEMOGLOBIN 32.9 pg (27.0-31.0); MEAN CORPUSCULAR HGB CONC 33.9 g/dL (33.0-37.0); MEAN PLATELET VOLUME 8.4 fl (7.2-11.7); MONO # 1.3 K/uL (0.0-0.8); MONO % 26.8 % (0.0-10.0); NEUT # 2.8 K/uL (1.8-7.0); NEUT % 59.3 % (50.0-75.0); PLATELET COUNT 171 K/uL (130-400); RED CELL DISTRIBUTION WIDTH 16.2 % (11.5-14.5); WHITE BLOOD COUNT 4.7 K/uL (4.8-10.8)
[2017-02-03 07:15] LABS: BLOOD UREA NITROGEN 18 mg/dl (9-20); CARBON DIOXIDE 23 mmol/L (22-30); CHLORIDE 107 mmol/L (98-107); GFR AFRICAN-AMERICAN > 60; GLUCOSE,RANDOM 104 mg/dL (75-110); MAGNESIUM 1.3 MG/DL (1.6-2.3); POTASSIUM 3.8 MMOL/L (3.6-5.0); SODIUM 137 mmol/l (132-148)
[2017-02-03] MEDS: Linezolid 600 mg in D5W 300 ml 600 MG/300 ML BAG IVPB SCH ×2 (08:39→21:18)
[2017-02-03] MEDS ORDERED: Phytonadione 10 mg/ml Inj (Adult) IV ONE (08:40)
[2017-02-03] MEDS: Multivitamin With Minerals Tab PO SCH (08:44)
[2017-02-03] MEDS: Pantoprazole 20 mg EC Tab PO SCH ×2 (08:44→18:06)
[2017-02-03 08:58] LABS: EOSINOPHIL 2 % (0-7); NEUTROPHIL 61 % (42-75); TOTAL CELLS COUNTED 100
[2017-02-03 09:00] LABS: PLATELET CLUMPS PRESENT
[2017-02-03] MEDS ORDERED: Phytonadione 10 MG in Sodium Chloride 0.9% 50 ML IV ONE (09:30)
[2017-02-03] MEDS ORDERED: Magnesium Sulfate 2 gm/50 ml 2 GM/50 ML BAG IVPB ONE ×2 (09:30→16:24)
--- NOTE | 2017-02-03 09:48 | CP.PCM.CON ---
History of Present Illness - History of Present Illness History of Present Illness: 61 year male with a history of HTN, HL, ETOH abuse, thrombocytopenia, osteoarthritis s/p left knee replacement in 12/2016, admitted with infected left knee wound with thromobocytopenia. The patient is well known to me from his prior admission. He had thrombocytopenia related to bone marrow suppression from alcohol. He received DDAVP prior to OR. His platelet count normalized and he had no bleeding/bruising complications. Today he reports to feeling well. He notes he has decreased his alcohol consumption to just wine. Past medical history: HTN, HL, liver disease, alcohol abuse, thrombocytopenia, Past surgical history: Adrenal gland surgery, knee surgery Family history: Denies hematologic and oncologic problems Social history: Former tobacco abuse, 2-3 glasses of wine daily, denies illicit drug use. Allergies: NKDA Review of systems: All remaining review of systems including HEENT, cardiovascular, respiratory, gastrointestinal, genitourinary, musculoskeletal, dermatologic, neurologic, and psychiatric are negative unless mentioned in the HPI. Past Patient History - Infectious Disease Hx of Infectious Diseases: None - Tetanus Immunizations Tetanus Immunization: Unknown - Past Medical History & Family History Past Medical History?: Yes - Past Social History Smoking Status: Never Smoked - CARDIAC Hx Cardiac Disorders: Yes Hx Hypercholesterolemia: Yes Hx Hypertension: Yes - PULMONARY Hx Respiratory Disorders: No Hx Asthma: No - NEUROLOGICAL Hx Neurological Disorder: No - HEENT Hx HEENT Problems: No - RENAL Hx Chronic Kidney Disease: No - ENDOCRINE/METABOLIC Hx Endocrine Disorders: No Hx Diabetes Mellitus Type 2: No - HEMATOLOGICAL/ONCOLOGICAL Hx Blood Disorders: No Hx AIDS: No Hx Hepatitis C: No Hx Human Immunodeficiency Virus (HIV): No - INTEGUMENTARY Hx Dermatological Problems: No - MUSCULOSKELETAL/RHEUMATOLOGICAL Hx Musculoskeletal Disorders: Yes Hx Arthritis: Yes Hx Falls: Yes (12 years ago, hx of etoh abuse) Hx Fractures: Yes (fell 12 yrs ago fx 2 ribs R side) Hx Osteoarthritis: Yes - GASTROINTESTINAL Hx Gastrointestinal Disorders: Yes (Hx of Parekh's esophagus) - GENITOURINARY/GYNECOLOGICAL Hx Genitourinary Disorders: Yes Hx Prostate Problems: Yes (BPH diagnosed 1 yr ago) - PSYCHIATRIC Hx Psychophysiologic Disorder: Yes Hx Anxiety: Yes Hx Depression: Yes Hx Substance Use: No Other/Comment: alcoholism/ etoh abuse - SURGICAL HISTORY Hx Surgeries: Yes Hx Arthroscopy: Yes (L TKR 12/27/16) Hx Orthopedic Surgery: Yes (left Clavicular fracture surgery, left TKR) - ANESTHESIA Hx Anesthesia: Yes Hx Anesthesia Reactions: No Hx Malignant Hyperthermia: No Meds Allergies/Adverse Reactions: Allergies Allergy/AdvReac Type Severity Reaction Status Date / Time silk AdvReac BLISTER Verified 12/24/16 08:42 - Medications Medications: Current Medications Calcium Carbonate (Oscal) 500 mg PO DAILY [facility] Last Admin: 02/02/17 09:00 Dose: Not Given Chlordiazepoxide (Librium) 10 mg PO Q6 [facility] Last Admin: 02/03/17 04:05 Dose: 10 mg Ferrous Sulfate (Feosol) 325 mg PO BID [facility] Last Admin: 02/03/17 08:44 Dose: Not Given Linezolid (Zyvox 600mg/300ml D5w) 600 mg in 300 mls @ 300 mls/hr IVPB Q12 [facility] PRN Reason: Protocol Last Admin: 02/03/17 08:39 Dose: 300 mls/hr Cefepime HCl 0.500 gm/ Sodium (Chloride) 50 mls @ 50 mls/hr IVPB Q12 [facility] PRN Reason: Protocol Last Admin: 02/03/17 08:38 Dose: 50 mls/hr Magnesium Sulfate (Magnesium Sulfate 2 Gm/50 Ml Water) 2 gm in 50 mls @ 50 mls/ hr IVPB ONCE ONE PRN Reason: 2 GM/HR Stop: 02/03/17 10:29 Folic Acid 1 mg/ Sodium (Chloride) 50.2 mls @ 30.06 mls/hr IVPB DAILY [facility] Phytonadione 10 mg/ Sodium (Chloride) 51 mls @ 153 mls/hr IV ONCE ONE Stop: 02/03/17 09:49 Lorazepam (Ativan) 1 mg IVP Q4 PRN PRN Reason: Symptoms of alcohol withdrawl Last Admin: 02/02/17 16:11 Dose: 1 mg Multivitamins/Minerals (Therapeutic-M Tab) 1 tab PO DAILY [facility] Last Admin: 02/03/17 08:44 Dose: Not Given Oxycodone/Acetaminophen (Percocet 5/325 Mg Tab) 1 tab PO Q4 PRN PRN Reason: Pain, severe (8-10) Stop: 02/04/17 18:50 Last Admin: 02/03/17 04:09 Dose: 1 tab Pantoprazole Sodium (Protonix Ec Tab) 20 mg PO BID [facility] Last Admin: 02/03/17 08:44 Dose: Not Given Phytonadione (Vitamin K Inj) 10 mg IV ONCE ONE Stop: 02/03/17 08:41 Tamsulosin HCl (Flomax) 0.4 mg PO [facility] Last Admin: 02/02/17 21:00 Dose: 0.4 mg Physical Exam - Head Exam Head Exam: ATRAUMATIC - Eye Exam Eye Exam: Normal appearance - ENT Exam ENT Exam: Mucous Membranes Dry - Respiratory Exam Respiratory Exam: NORMAL BREATHING PATTERN - Cardiovascular Exam Cardiovascular Exam: +S1, +S2 - GI/Abdominal Exam GI & Abdominal Exam: Normal Bowel Sounds - Extremities Exam Additional comments: left knee dressing - Neurological Exam Neurological exam: Oriented x3 - Psychiatric Exam Psychiatric exam: Normal Affect, Normal Mood - Skin Skin Exam: Warm Results - Vital Signs Recent Vital Signs: Last Vital Signs Temp 98.6 F 02/03/17 08:01 Pulse 78 02/03/17 08:01 Resp 20 02/03/17 08:01 BP 127/85 02/03/17 08:01 Pulse Ox 99 02/03/17 08:01 - Labs Result Diagrams: 02/03/17 06:10 02/03/17 06:10 Labs: Laboratory Results - last 24 hr 02/02/17 02/02/17 02/03/17 05:25 12:39 06:10 WBC 4.7 L RBC 3.04 L Hgb 10.0 L Hct 29.6 L MCV 97.1 H MCH 32.9 H MCHC 33.9 RDW 16.2 H Plt Count 171 MPV 8.4 Neut % (Auto) 59.3 Lymph % (Auto) 11.5 L Winston % (Auto) 26.8 H Eos % (Auto) 2.0 Baso % (Auto) 0.4 Neut # 2.8 Lymph # 0.5 L Winston # 1.3 H Eos # 0.1 Baso # 0.0 Neutrophils % (Manual) 78 H 61 Lymphocytes % (Manual) 1 L 9 L Monocytes % (Manual) 21 H 28 H Eosinophils % (Manual) 2 Toxic Granulation Present Present Platelet Estimate Slightly decreased L Normal Plt Clumps, EDTA Present Large Platelets Present Hypochromasia (manual) Slight Slight Anisocytosis (manual) Slight Slight Tear Drop Cells Slight Slight Ovalocytes Slight Sodium 136 Potassium 3.4 L Chloride 106 Carbon Dioxide 22 Anion Gap 11 BUN 25 H Creatinine 1.2 Est GFR ( Amer) > 60 Est GFR (Non-Af Amer) > 60 Random Glucose 132 H Calcium 8.6 Magnesium 02/03/17 06:10 WBC RBC Hgb Hct MCV MCH MCHC RDW Plt Count MPV Neut % (Auto) Lymph % (Auto) Winston % (Auto) Eos % (Auto) Baso % (Auto) Neut # Lymph # Winston # Eos # Baso # Neutrophils % (Manual) Lymphocytes % (Manual) Monocytes % (Manual) Eosinophils % (Manual) Toxic Granulation Platelet Estimate Plt Clumps, EDTA Large Platelets Hypochromasia (manual) Anisocytosis (manual) Tear Drop Cells Ovalocytes Sodium 137 Potassium 3.8 Chloride 107 Carbon Dioxide 23 Anion Gap 11 BUN 18 Creatinine 0.9 Est GFR ( Amer) > 60 Est GFR (Non-Af Amer) > 60 Random Glucose 104 Calcium 9.0 Magnesium 1.3 L Assessment & Plan (1) Pancytopenia Assessment and Plan: secondary to alcohol abuse causing bone marrow suppression his platelet count has normalized today his leukopenia is mild and he has no neutropenia his H/H is stable He is cleared from a hematologic standpoint for orthopedic surgery Status: Acute (2) Coagulopathy Assessment and Plan: mild, nutritional will give 1 dose of vit k IV now he is cleared for DVT prophylaxis Thank you for this interesting consult. Status: Acute
[2017-02-03] MEDS: Folic Acid 1 MG in Sodium Chloride 0.9% 50 ML IVPB SCH (09:58)
--- NOTE | 2017-02-03 11:45 | CP.PCM.PN ---
Subjective - Date & Time of Evaluation Date of Evaluation: 02/03/17 Time of Evaluation: 10:30 - Subjective Subjective: NO CHEST PAIN OR SOB Objective - Vital Signs/Intake and Output Vital Signs (last 24 hours): Temp Pulse Resp BP Pulse Ox 98.6 F 78 20 127/85 99 02/03/17 08:01 02/03/17 08:01 02/03/17 08:01 02/03/17 08:01 02/03/17 08:01 - Medications Medications: Current Medications Calcium Carbonate (Oscal) 500 mg PO DAILY [facility] Last Admin: 02/03/17 09:57 Dose: Not Given Chlordiazepoxide (Librium) 10 mg PO Q6 [facility] Last Admin: 02/03/17 10:03 Dose: Not Given Ferrous Sulfate (Feosol) 325 mg PO BID [facility] Last Admin: 02/03/17 08:44 Dose: Not Given Linezolid (Zyvox 600mg/300ml D5w) 600 mg in 300 mls @ 300 mls/hr IVPB Q12 [facility] PRN Reason: Protocol Last Admin: 02/03/17 08:39 Dose: 300 mls/hr Cefepime HCl 0.500 gm/ Sodium (Chloride) 50 mls @ 50 mls/hr IVPB Q12 [facility] PRN Reason: Protocol Last Admin: 02/03/17 08:38 Dose: 50 mls/hr Folic Acid 1 mg/ Sodium (Chloride) 50.2 mls @ 30.06 mls/hr IVPB DAILY [facility] Last Admin: 02/03/17 09:58 Dose: 30.06 mls/hr Lorazepam (Ativan) 1 mg IVP Q4 PRN PRN Reason: Symptoms of alcohol withdrawl Last Admin: 02/02/17 16:11 Dose: 1 mg Multivitamins/Minerals (Therapeutic-M Tab) 1 tab PO DAILY [facility] Last Admin: 02/03/17 08:44 Dose: Not Given Oxycodone/Acetaminophen (Percocet 5/325 Mg Tab) 1 tab PO Q4 PRN PRN Reason: Pain, severe (8-10) Stop: 02/04/17 18:50 Last Admin: 02/03/17 04:09 Dose: 1 tab Pantoprazole Sodium (Protonix Ec Tab) 20 mg PO BID [facility] Last Admin: 02/03/17 08:44 Dose: Not Given Tamsulosin HCl (Flomax) 0.4 mg PO HS [facility] Last Admin: 02/02/17 21:00 Dose: 0.4 mg - Labs Labs: 02/03/17 06:10 02/03/17 06:10 PT 14.1 Seconds (9.8-13.1) H 02/01/17 17:18 INR 1.2 (0.9-1.2) 02/01/17 17:18 APTT 32.2 Seconds (25.6-37.1) 02/01/17 17:18 - Respiratory Exam Respiratory Exam: Clear to Ausculation Bilateral - Cardiovascular Exam Cardiovascular Exam: REGULAR RHYTHM, +S1, +S2 Assessment and Plan - Assessment and Plan (Free Text) Assessment: S/P LEFT KNEE REPLACEMENT LEFT KNEE WOUND INFECTION HYPERTENSION HYPERLIPIDEMIA Plan: FOR SURGERY
--- NOTE | 2017-02-03 12:14 | CP.PCM.PN ---
<Marco Antonio Caldwell - Last Filed: 02/03/17 14:43> Subjective - Date & Time of Evaluation Date of Evaluation: 02/03/17 Time of Evaluation: 11:00 - Subjective Subjective: Hospitalist Progress Note 61 year old male patient PMHx alcoholism, HTN, HLD, BPH, OA s/p left TKR 1 month. Patient hemodynamically stable and NAD. No issues overnight. Patient aware he is to have left knee I&D this afternoon with Dr. Hendrix. NPO status confirmed. Denies N/V/F/D/C/SOB/palpitations/abd pain. Objective - Vital Signs/Intake and Output Vital Signs (last 24 hours): Temp Pulse Resp BP Pulse Ox 98.6 F 78 20 127/85 99 02/03/17 08:01 02/03/17 08:01 02/03/17 08:01 02/03/17 08:01 02/03/17 08:01 - Medications Medications: Current Medications Calcium Carbonate (Oscal) 500 mg PO DAILY [facility] Last Admin: 02/03/17 09:57 Dose: Not Given Chlordiazepoxide (Librium) 10 mg PO Q6 [facility] Last Admin: 02/03/17 10:03 Dose: Not Given Ferrous Sulfate (Feosol) 325 mg PO BID [facility] Last Admin: 02/03/17 08:44 Dose: Not Given Linezolid (Zyvox 600mg/300ml D5w) 600 mg in 300 mls @ 300 mls/hr IVPB Q12 [facility] PRN Reason: Protocol Last Admin: 02/03/17 08:39 Dose: 300 mls/hr Cefepime HCl 0.500 gm/ Sodium (Chloride) 50 mls @ 50 mls/hr IVPB Q12 [facility] PRN Reason: Protocol Last Admin: 02/03/17 08:38 Dose: 50 mls/hr Folic Acid 1 mg/ Sodium (Chloride) 50.2 mls @ 30.06 mls/hr IVPB DAILY [facility] Last Admin: 02/03/17 09:58 Dose: 30.06 mls/hr Lorazepam (Ativan) 1 mg IVP Q4 PRN PRN Reason: Symptoms of alcohol withdrawl Last Admin: 02/02/17 16:11 Dose: 1 mg Multivitamins/Minerals (Therapeutic-M Tab) 1 tab PO DAILY [facility] Last Admin: 02/03/17 08:44 Dose: Not Given Oxycodone/Acetaminophen (Percocet 5/325 Mg Tab) 1 tab PO Q4 PRN PRN Reason: Pain, severe (8-10) Stop: 02/04/17 18:50 Last Admin: 02/03/17 04:09 Dose: 1 tab Pantoprazole Sodium (Protonix Ec Tab) 20 mg PO BID [facility] Last Admin: 02/03/17 08:44 Dose: Not Given Tamsulosin HCl (Flomax) 0.4 mg PO HS [facility] Last Admin: 02/02/17 21:00 Dose: 0.4 mg - Labs Labs: 02/03/17 06:10 02/03/17 06:10 PT 14.1 Seconds (9.8-13.1) H 02/01/17 17:18 INR 1.2 (0.9-1.2) 02/01/17 17:18 APTT 32.2 Seconds (25.6-37.1) 02/01/17 17:18 - Constitutional Appears: Well, Non-toxic, No Acute Distress - Head Exam Head Exam: ATRAUMATIC, NORMAL INSPECTION, NORMOCEPHALIC - Eye Exam Eye Exam: EOMI, Normal appearance Pupil Exam: NORMAL ACCOMODATION, PERRL - ENT Exam ENT Exam: Mucous Membranes Moist, Normal Exam - Neck Exam Neck Exam: Full ROM, Normal Inspection. absent: Tenderness - Respiratory Exam Respiratory Exam: Clear to Ausculation Bilateral, NORMAL BREATHING PATTERN. absent: Rales, Rhonchi, Wheezes - Cardiovascular Exam Cardiovascular Exam: REGULAR RHYTHM, +S1, +S2. absent: Gallop, JVD, Rubs - GI/Abdominal Exam GI & Abdominal Exam: Soft, Normal Bowel Sounds. absent: Bruit, Tenderness - Rectal Exam Rectal Exam: Deferred - Extremities Exam Extremities Exam: Joint Swelling, Normal Capillary Refill. absent: Calf Tenderness, Full ROM Additional comments: Left knee dressing clean/dry/intact. Left knee erythema and calor extending distally to mid-calf. - Neurological Exam Neurological Exam: Alert, Awake, Oriented x3 - Psychiatric Exam Psychiatric exam: Normal Affect, Normal Mood - Skin Skin Exam: Erythema, Warm Assessment and Plan - Assessment and Plan (Free Text) Assessment: 61 y/o gent with known hx of Alcoholism, Chronic Liver Dis with Thrombocytopenia , hx of HTN, Hyperlipidemia, BPH, and OA, s/p Left TKR December 27, 2016. The patient was discharged to [facility] on DEC 29. He was fine on discharge, applying topical pain reliever onto surgical site, until Tuesday01/28/17 when he peeled off scab from his surgical wound, and woke up the following day with some fever , and drainage from the left knee TKR wound. (1) r/o Infection of left knee, history of TKR December 27 Status: Suspected Ortho consult - Dr. Hendrix following Approximately 2cc of serosanguinous drainage able to be expressed from knee No fever at present, no leukocytosis Knee Xray reveals TKR hardware intact, ST swelling with suprapatellar joint effusion Awaiting knee CT report Left knee wound culture (prelim) reveals growth of staph aureus Blood c/s received, pending ID consult - discussed case with Dr Olmedo - rec to start IV Zyvox and Cefepime, consider changing Zyvox to Vancomycin pending renal function and cultures Dr. Brothers consulted for cardiac clearance; pt cleared for surgery once K+ corrected NPO Patient for knee I&D today with Dr. Hendrix (2) Status post knee replacement Status: Subacute TKR done Dec 27, pt was doing well until a few days ago (3) Primary osteoarthritis of left knee Status: Chronic (4) Alcoholic liver disease Status: Chronic sec to Alcoholism Pt follows up with a GI specialist in [facility] (5) HOWARD Creatinine was normal on discharge a month ago Cr normalizing with hydration - 0.9 today Renal Sonogram IVF hydration (6) Alcohol Withdrawal Start Ativan prn Librium RTC start Thiamine Urine drug screen (7) HTN (hypertension) Status: Chronic hold antihypertensives as BP low normal (8) Thrombocytopenia sec to Liver dis /Alcohol Status: Chronic Platelet count normalized, 171 today Hematology consulted, recs appreciated; states pancytopenia 2/2 alcohol abuse causing bone marrow suppression - Per Dr. Alvares, patient cleared from a hematologic standpoint for orthopedic surgery (9) BPH start Flomax (pt on Rapaflo at home) PSA increased - 7.80 Advised patient f/u with his Urologist upon discharge f/u Free PSA (10) Hypokalemia 3.1 on 02/02/17 KCl ordered, normalized after 4 runs K+ wnl today at 3.8 Will monitor closely (11) Hypomagnesemia Mg 1.3 Stat dose Mg given repeat Mg at noon (12) DVT prophylaxis Status: Acute SCD for now - sched for Incision and drainage <Elba Valerio - Last Filed: 02/03/17 16:31> Objective - Vital Signs/Intake and Output Vital Signs (last 24 hours): Temp Pulse Resp BP Pulse Ox 98.6 F 78 20 127/85 99 02/03/17 08:01 02/03/17 08:01 02/03/17 08:01 02/03/17 08:01 02/03/17 08:01 - Medications Medications: Current Medications Calcium Carbonate (Oscal) 500 mg PO DAILY [facility] Last Admin: 02/03/17 09:57 Dose: Not Given Chlordiazepoxide (Librium) 10 mg PO Q6 [facility] Last Admin: 02/03/17 16:02 Dose: Not Given Ferrous Sulfate (Feosol) 325 mg PO BID [facility] Last Admin: 02/03/17 08:44 Dose: Not Given Linezolid (Zyvox 600mg/300ml D5w) 600 mg in 300 mls @ 300 mls/hr IVPB Q12 [facility] PRN Reason: Protocol Last Admin: 02/03/17 08:39 Dose: 300 mls/hr Cefepime HCl 0.500 gm/ Sodium (Chloride) 50 mls @ 50 mls/hr IVPB Q12 [facility] PRN Reason: Protocol Last Admin: 02/03/17 08:38 Dose: 50 mls/hr Folic Acid 1 mg/ Sodium (Chloride) 50.2 mls @ 30.06 mls/hr IVPB DAILY [facility] Last Admin: 02/03/17 09:58 Dose: 30.06 mls/hr Magnesium Sulfate (Magnesium Sulfate 2 Gm/50 Ml Water) 2 gm in 50 mls @ 50 mls/ hr IVPB ONCE ONE PRN Reason: 2 GM/HR Stop: 02/03/17 17:23 Lorazepam (Ativan) 1 mg IVP Q4 PRN PRN Reason: Symptoms of alcohol withdrawl Last Admin: 02/03/17 14:56 Dose: 1 mg Multivitamins/Minerals (Therapeutic-M Tab) 1 tab PO DAILY [facility] Last Admin: 02/03/17 08:44 Dose: Not Given Oxycodone/Acetaminophen (Percocet 5/325 Mg Tab) 1 tab PO Q4 PRN PRN Reason: Pain, severe (8-10) Stop: 02/04/17 18:50 Last Admin: 02/03/17 04:09 Dose: 1 tab Pantoprazole Sodium (Protonix Ec Tab) 20 mg PO BID [facility] Last Admin: 02/03/17 08:44 Dose: Not Given Tamsulosin HCl (Flomax) 0.4 mg PO HS [facility] Last Admin: 02/02/17 21:00 Dose: 0.4 mg - Labs Labs: 02/03/17 06:10 02/03/17 06:10 PT 14.1 Seconds (9.8-13.1) H 02/01/17 17:18 INR 1.2 (0.9-1.2) 02/01/17 17:18 APTT 32.2 Seconds (25.6-37.1) 02/01/17 17:18 Assessment and Plan (1) Infection of left knee Status: Suspected (2) Status post knee replacement Status: Acute (3) Primary osteoarthritis of left knee Status: Chronic (4) Alcoholic liver disease Status: Chronic (5) HTN (hypertension) Status: Chronic (6) Thrombocytopenia Status: Chronic (7) DVT prophylaxis Status: Acute Attending/Attestation - Attestation I have personally seen and examined this patient.: Yes I have fully participated in the care of the patient.: Yes I have reviewed all pertinent clinical information, including history, physical exam and plan: Yes Notes (Text): Creatinine normalized with IVF hydration , HOWARD likely prerenal - hold off on Renal Sono - advised pt to ff up with PMD /Urology as outpt Thrombocytopenia/Coagulopathy sec to Liver dis - discussed case with Dr Alvares , rec to give Vit K 10 mg IV x 1 dose Additional Diagnosis: 1. Depression/Anxiety - Pt on Ativan prn - Psych consulted- will come to see pt
--- NOTE | 2017-02-03 14:38 | CT ---
PROCEDURE: CT left knee HISTORY: Left knee pain and swelling. No antecedent history of trauma COMPARISON: 12/27/2016 TECHNIQUE: 2.5 mm axial acquisition and display. Coronal and sagittal reconstructions. Dose report (mGy-cm): 270.09 3D volume rendering. FINDINGS: Diffuse soft tissue swelling primarily suprapatellar prepatellar with complex joint effusion likely containing synovial fluid and debris/ hemorrhagic products. Additional popliteal fossa fluid collection incompletely visualize partially obscured by streak artifact now measures 2.7 x 2.7 cm. Hounsfield unit values averaged 31. No apparent hardware failure, loosening or other pathologic process. IMPRESSION: Soft tissue swelling, complex suprapatellar effusion and small popliteal fossa collection. No acute or significant osseous abnormalities detected. Concordant results (preliminary interpretation) provided by [facility]. Procedure Completed: 18:11 Preliminary ([facility]) Report: Dictated and Authenticated: 19:31 Final Interpretation: 08:32
[2017-02-03] MEDS ORDERED: SENSORCAINE 0.5% W/EPINEPHRINE 50ML MDV IJ ONE (15:43)
[2017-02-03] MEDS ORDERED: Rocuronium 10 mg/ml (5 ml) ONE (15:47)
[2017-02-03] MEDS ORDERED: Succinylcholine 200 mg/10 ml Inj IV ONE (15:47)
[2017-02-03] MEDS ORDERED: Lidocaine 4% (Laryng-O-Jet) Kit MM ONE (15:47)
[2017-02-03] MEDS ORDERED: Propofol 10 mg/ml Inj (20 ML) ONE (15:47)
[2017-02-03] MEDS ORDERED: Gentamicin 80 mg/2mL Inj. ONE (16:48)
[2017-02-03] MEDS ORDERED: ceFAZolin IV 1 gm in Dextrose 2 GM/100 ML BAG IVPB ONE (16:48)
[2017-02-03] MEDS ORDERED: Bacitracin Ointment 30 GM TUBE ONE ×2 (16:51→18:13)
[2017-02-03] MEDS ORDERED: Lactated Ringer's 1,000 ML IV ONE ×2 (16:52→18:00)
[2017-02-03] MEDS ORDERED: Midazolam 2 MG/2 ML VIAL ONE (16:56)
[2017-02-03] MEDS ORDERED: Dexamethasone 4 mg/1 ml ONE (17:09)
[2017-02-03] MEDS ORDERED: Sevoflurane - Inhalation Anesthetic Liq (250 ml) ONE (17:29)
--- NOTE | 2017-02-03 17:35 | PCM.ANESB3 ---
Femoral Nerve Block - Femoral Nerve Block Date of Procedure: 02/03/17 Anesthesiologist: Karen Pre-Procedure Diagnosis: Infected left TKR wound Post-Procedure Diagnosis: Same Procedure Performed: Femoral Nerve Block Left - Procedure Femoral Nerve Block: The procedure was explained to the patient that it is for the post-operative pain management. Consent was obtained after a thorough discussion with the patient regarding the benefits and possible complications of local anesthetic block of the femoral nerve at the inguinal crease area. The patient was brought to the operating room and standard monitors were applied. Time-out was held with the circulating nurse to confirm the correct surgery and the appropriate block. Under general anesthesia, patient was placed in supine position with fully extended lower extremities and the ____left____ groin exposed. The femoral artery was then carefully palpated. The ultrasound transducer was then applied to this area in the transverse plane and the femoral nerve was visualized lateral to the femoral artery and underneath the fascia iliaca. After thorough identification, the inguinal crease area was prepped with Chloraprep. At this point, a #22 gauge Stimuplex 4-inch needle was inserted immediately lateral to the femoral artery pulse at the inguinal crease and advanced perpendicularly. The needle was inserted to the ultrasound transducer in-plane towards the femoral nerve in a [id number] direction. Needle advancement was performed carefully under direct ultrasound visualization. Nerve stimulator was used and twitch of the quadriceps muscle was obtained at current of __0.45__ _MA. After negative aspiration, __2___cc of __0.5___% ___bupivicaine with 1:200, 000 epinephrine was injected and this was followed with ___28__ _ cc of ___0.5____ % bupivicaine with 1:200,000 epinephrine . Under ultrasound guidance the local anesthetics were observed spreading below fascia iliaca and around the femoral nerve. The needle was removed intact. The patient tolerated the femoral nerve block well with stable vital signs and was prepared for subsequent surgery.
[2017-02-03 18:02] LABS: FLUID TYPE SYNOVIAL FLUID
[2017-02-03 18:18] LABS: FLUID TYPE SYNOVIAL FLUID
[2017-02-03] MEDS ORDERED: Gentamicin 80 mg/2mL Inj. IVPB ONE (18:45)
[2017-02-03] MEDS ORDERED: Vancomycin 1 g Inj IVPB ONE (18:45)
[2017-02-03 18:58] LABS: ESTIM. PROBABILITY CANCER >50 Percent; TOTAL PSA 11.9 ng/mL (<=4.0)
[2017-02-03 19:08] LABS: SYNOVIAL FLUID TOTAL COUNT 100 (0-0)
[2017-02-03 19:18] LABS: SYNOVIAL FLUID TOTAL COUNT 100 (0-0)
--- NOTE | 2017-02-03 19:23 | PCM.SURG1 ---
Surgeon's Initial Post Op Note - Surgeon's Notes Surgeon: Simeon [employer] Technician: ELAINA Robles Type of Anesthesia: General Endo Anesthesia Administered By: DR Maxwell/DR Metz Pre-Operative Diagnosis: R/o septic TKR Operative Findings: superficial drainage- no evidence for deep sepsis Post-Operative Diagnosis: as above. synovitis Operation Performed: Revision TKR- 1 componenet (tibial poly). arthrotomy- incision drainage. arthrotomy-. anterior and posterior syovectomy. excision skin/subcutaneous tissue and muscle. ontroduction of abio imregantes caso4 pellets Specimen/Specimens Removed: skin/subcutaneous tissue/muscle. tibisl poly Estimated Blood Loss: EBL {In ML}: 30 Blood Products Given: N/A Drains Used: No Drains Post-Op Condition: Good Date of Surgery/Procedure: 02/03/17 Time of Surgery/Procedure: 17:40 (time in or 1651)
[2017-02-03] MEDS ORDERED: HYDROmorphone 0.5 mg/0.5 ml ISec IVP PRN (19:41)
[2017-02-03] MEDS ORDERED: Midazolam 2 MG/2 ML VIAL IVP PRN (19:41)
[2017-02-03] MEDS ORDERED: Lactated Ringer's 1,000 ML IV SCH (19:45)
[2017-02-03] MEDS ORDERED: Oxycodone/Acetaminophen 5/325 mg Tab PO PRN (21:02)
[2017-02-04 06:59] LABS: BASO % 0.1 % (0.0-2.0); HEMATOCRIT 29.8 % (35.0-51.0); LYMPH # 0.3 K/uL (1.0-4.3); LYMPH % 5.2 % (20.0-40.0); MEAN CELL VOLUME 96.3 fl (80.0-94.0); MEAN CORPUSCULAR HEMOGLOBIN 32.3 pg (27.0-31.0); MEAN CORPUSCULAR HGB CONC 33.5 g/dL (33.0-37.0); MEAN PLATELET VOLUME 8.2 fl (7.2-11.7); MONO # 0.9 K/uL (0.0-0.8); MONO % 18.1 % (0.0-10.0); NEUT % 76.6 % (50.0-75.0); NRBC % 0.1 % (0.0-0.0); RED CELL DISTRIBUTION WIDTH 15.6 % (11.5-14.5); WHITE BLOOD COUNT 5.2 K/uL (4.8-10.8)
[2017-02-04 07:30] LABS: ALKALINE PHOSPHATASE 56 U/L (38-126); ALT/SGPT 35 U/L (21-72); AST/SGOT 39 U/L (17-59); BILIRUBIN,TOTAL 0.7 mg/dl (0.2-1.3); BLOOD UREA NITROGEN 17 mg/dl (9-20); CALCIUM 8.8 mg/dL (8.4-10.2); CARBON DIOXIDE 24 mmol/L (22-30); CHLORIDE 105 mmol/L (98-107); GFR AFRICAN-AMERICAN > 60; GLUCOSE,RANDOM 149 mg/dL (75-110); MAGNESIUM 1.5 MG/DL (1.6-2.3); POTASSIUM 3.8 MMOL/L (3.6-5.0); SODIUM 139 mmol/l (132-148); TOTAL PROTEIN 5.9 G/DL (6.3-8.2)
[2017-02-04] MEDS ORDERED: Enoxaparin 40 mg Syringe SC SCH (09:00)
[2017-02-04] MEDS: Oxycodone/Acetaminophen 5/325 mg Tab PO PRN ×2 (09:01→16:38)
[2017-02-04] MEDS: Multivitamin With Minerals Tab PO SCH (09:07)
[2017-02-04] MEDS: Pantoprazole 20 mg EC Tab PO SCH (09:08)
--- NOTE | 2017-02-04 10:21 | CP.PCM.PN ---
Subjective - Date & Time of Evaluation Date of Evaluation: 02/04/17 Time of Evaluation: 10:16 - Subjective Subjective: 61 year old male with PMHx of HTN, HLD, BPH, OA of left knee seen at bedside one day s/p incision and drainage of infected left knee secondary to total knee replacement on 12/27. Patient is AAO x 3 and NAD resting comfortably in his bedside chair eating breakfast. Patient states that his pain today is 2/10 and that he has been able to walk with limited pain during his physical therapy sessions with the assistance of his walker. States that he had a bowel movement this morning and has been passing urine regularly. Denies any acute overnight events. Denies N/V/F/C/CP/SOB/calf pain/abdominal pain. Objective - Vital Signs/Intake and Output Vital Signs (last 24 hours): Temp Pulse Resp BP Pulse Ox 98.5 F 83 17 145/93 H 96 02/04/17 08:04 02/04/17 08:04 02/04/17 08:04 02/04/17 08:04 02/04/17 08:04 Intake and Output: 02/04/17 02/04/17 06:59 18:59 Intake Total 1840 Output Total 2000 Balance -160 - Medications Medications: Current Medications Acetaminophen (Tylenol 325mg Tab) 650 mg PO Q4 PRN PRN Reason: Pain, Mild (1-3) Calcium Carbonate (Oscal) 500 mg PO DAILY [facility] Last Admin: 02/04/17 09:07 Dose: 500 mg Chlordiazepoxide (Librium) 10 mg PO Q6 [facility] Last Admin: 02/04/17 09:07 Dose: 10 mg Enoxaparin Sodium (Lovenox) 40 mg SC DAILY [facility] PRN Reason: Protocol Last Admin: 02/04/17 09:06 Dose: 40 mg Ferrous Sulfate (Feosol) 325 mg PO BID [facility] Last Admin: 02/04/17 09:07 Dose: 325 mg Linezolid (Zyvox 600mg/300ml D5w) 600 mg in 300 mls @ 300 mls/hr IVPB Q12 [facility] PRN Reason: Protocol Last Admin: 02/03/17 21:18 Dose: 300 mls/hr Cefepime HCl 0.500 gm/ Sodium (Chloride) 50 mls @ 50 mls/hr IVPB Q12 [facility] PRN Reason: Protocol Last Admin: 02/04/17 09:15 Dose: 50 mls/hr Folic Acid 1 mg/ Sodium (Chloride) 50.2 mls @ 30.06 mls/hr IVPB DAILY [facility] Last Admin: 02/03/17 09:58 Dose: 30.06 mls/hr Lactated Ringer's (Lactated Ringer's) 1,000 mls @ 75 mls/hr IV .[id number] [facility] Lorazepam (Ativan) 1 mg IVP Q4 PRN PRN Reason: Symptoms of alcohol withdrawl Last Admin: 02/03/17 14:56 Dose: 1 mg Midazolam HCl (Versed Inj) 2 mg IVP ONCE PRN PRN Reason: Agitation/Restlessness Multivitamins/Minerals (Therapeutic-M Tab) 1 tab PO DAILY [facility] Last Admin: 02/04/17 09:07 Dose: 1 tab Oxycodone/Acetaminophen (Percocet 5/325 Mg Tab) 1 tab PO Q4 PRN PRN Reason: Pain, severe (8-10) Stop: 02/04/17 18:50 Last Admin: 02/04/17 09:01 Dose: 1 tab Oxycodone/Acetaminophen (Percocet 5/325 Mg Tab) 1 tab PO Q4 PRN PRN Reason: Pain, moderate (4-7) Stop: 02/06/17 21:03 Pantoprazole Sodium (Protonix Ec Tab) 20 mg PO BID [facility] Last Admin: 02/04/17 09:08 Dose: 20 mg Tamsulosin HCl (Flomax) 0.4 mg PO HS [facility] Last Admin: 02/03/17 22:44 Dose: 0.4 mg - Labs Labs: 02/04/17 06:25 02/04/17 06:25 PT 14.1 Seconds (9.8-13.1) H 02/01/17 17:18 INR 1.2 (0.9-1.2) 02/01/17 17:18 APTT 32.2 Seconds (25.6-37.1) 02/01/17 17:18 - Constitutional Appears: Well, Non-toxic, No Acute Distress - Extremities Exam Extremities Exam: Normal Capillary Refill. absent: Full ROM - Neurological Exam Neurological Exam: Alert, Awake, Oriented x3 - Psychiatric Exam Psychiatric exam: Normal Affect, Normal Mood Assessment and Plan - Assessment and Plan (Free Text) Assessment: 61 year old male seen one day s/p incision and drainage of left knee following postoperative infection of total knee replacement that occurred on 12/27/16 Plan: (1) Infection of left knee, history of TKR December 27 Status: Acute Ortho consult - Dr. Hendrix following No fever at present, no leukocytosis Left knee wound culture: pending Blood c/s received: prelim- no growth, results to follow ID consult - Cefepime, Zyvox (2) Status post knee replacement Status: Subacute TKR done Dec 27, pt was doing well until a few days ago (3) Primary osteoarthritis of left knee Status: Chronic (4) Alcoholic liver disease Status: Chronic sec to Alcoholism Pt follows up with a GI specialist in [facility] (5) [facility] Creatinine was normal on discharge a month ago Cr normalizing with hydration - 0.8 today IVF hydration (6) Alcohol Withdrawal Ativan prn Librium RTC start Thiamine Urine drug screen (7) HTN (hypertension) Status: Chronic BP: 145/93 (8) Thrombocytopenia sec to Liver dis /Alcohol Status: Chronic Platelet count normalized, 222 today Hematology consulted, recs appreciated; states pancytopenia 2/2 alcohol abuse causing bone marrow suppression (9) BPH Flomax (pt on Rapaflo at home) PSA increased - 11.9 on 02/02 Free PSA 1.1 on 02/02 Advised patient f/u with his Urologist upon discharge (10) Hypokalemia K+ wnl today at 3.8 Will monitor closely (11) Hypomagnesemia Mg 1.5 (12) DVT prophylaxis Status: Acute Lovenox 40 mg SC daily
--- NOTE | 2017-02-04 10:36 | CP.PCM.PN ---
Subjective - Date & Time of Evaluation Date of Evaluation: 02/04/17 Time of Evaluation: 10:34 - Subjective Subjective: Patient states pain is well controlled. Denies CP/SOB/dizziness. Objective - Vital Signs/Intake and Output Vital Signs (last 24 hours): Temp Pulse Resp BP Pulse Ox 98.5 F 83 17 145/93 H 96 02/04/17 08:04 02/04/17 08:04 02/04/17 08:04 02/04/17 08:04 02/04/17 08:04 Intake and Output: 02/04/17 02/04/17 06:59 18:59 Intake Total 1840 Output Total 2000 Balance -160 - Medications Medications: Current Medications Acetaminophen (Tylenol 325mg Tab) 650 mg PO Q4 PRN PRN Reason: Pain, Mild (1-3) Calcium Carbonate (Oscal) 500 mg PO DAILY [facility] Last Admin: 02/04/17 09:07 Dose: 500 mg Chlordiazepoxide (Librium) 10 mg PO Q6 [facility] Last Admin: 02/04/17 09:07 Dose: 10 mg Enoxaparin Sodium (Lovenox) 40 mg SC DAILY [facility] PRN Reason: Protocol Last Admin: 02/04/17 09:06 Dose: 40 mg Ferrous Sulfate (Feosol) 325 mg PO BID [facility] Last Admin: 02/04/17 09:07 Dose: 325 mg Linezolid (Zyvox 600mg/300ml D5w) 600 mg in 300 mls @ 300 mls/hr IVPB Q12 [facility] PRN Reason: Protocol Last Admin: 02/03/17 21:18 Dose: 300 mls/hr Cefepime HCl 0.500 gm/ Sodium (Chloride) 50 mls @ 50 mls/hr IVPB Q12 [facility] PRN Reason: Protocol Last Admin: 02/04/17 09:15 Dose: 50 mls/hr Folic Acid 1 mg/ Sodium (Chloride) 50.2 mls @ 30.06 mls/hr IVPB DAILY [facility] Last Admin: 02/03/17 09:58 Dose: 30.06 mls/hr Lactated Ringer's (Lactated Ringer's) 1,000 mls @ 75 mls/hr IV .[id number] [facility] Lorazepam (Ativan) 1 mg IVP Q4 PRN PRN Reason: Symptoms of alcohol withdrawl Last Admin: 02/03/17 14:56 Dose: 1 mg Midazolam HCl (Versed Inj) 2 mg IVP ONCE PRN PRN Reason: Agitation/Restlessness Multivitamins/Minerals (Therapeutic-M Tab) 1 tab PO DAILY [facility] Last Admin: 02/04/17 09:07 Dose: 1 tab Oxycodone/Acetaminophen (Percocet 5/325 Mg Tab) 1 tab PO Q4 PRN PRN Reason: Pain, severe (8-10) Stop: 02/04/17 18:50 Last Admin: 02/04/17 09:01 Dose: 1 tab Oxycodone/Acetaminophen (Percocet 5/325 Mg Tab) 1 tab PO Q4 PRN PRN Reason: Pain, moderate (4-7) Stop: 02/06/17 21:03 Pantoprazole Sodium (Protonix Ec Tab) 20 mg PO BID [facility] Last Admin: 02/04/17 09:08 Dose: 20 mg Tamsulosin HCl (Flomax) 0.4 mg PO HS [facility] Last Admin: 02/03/17 22:44 Dose: 0.4 mg - Labs Labs: 02/04/17 06:25 02/04/17 06:25 PT 14.1 Seconds (9.8-13.1) H 02/01/17 17:18 INR 1.2 (0.9-1.2) 02/01/17 17:18 APTT 32.2 Seconds (25.6-37.1) 02/01/17 17:18 - Extremities Exam Additional comments: +ROM toes, ankle sensation intact dressing intact, knee immob intact Assessment and Plan (1) Status post knee replacement Assessment & Plan: POD#1 s/p i&D/poly exchange -f/u intraop cultures -ID f/u -PT/OT -VTE proph -d/w Dr. Hendrix, agrees with above Status: Acute
--- NOTE | 2017-02-04 11:40 | CP.PCM.PN ---
Subjective - Date & Time of Evaluation Date of Evaluation: 02/04/17 Time of Evaluation: 11:30 - Subjective Subjective: NO CHEST PAIN OR SOB Objective - Vital Signs/Intake and Output Vital Signs (last 24 hours): Temp Pulse Resp BP Pulse Ox 98.5 F 83 17 145/93 H 96 02/04/17 08:04 02/04/17 08:04 02/04/17 08:04 02/04/17 08:04 02/04/17 08:04 Intake and Output: 02/04/17 02/04/17 06:59 18:59 Intake Total 1840 Output Total 1999 Balance -160 - Medications Medications: Current Medications Acetaminophen (Tylenol 325mg Tab) 650 mg PO Q4 PRN PRN Reason: Pain, Mild (1-3) Calcium Carbonate (Oscal) 500 mg PO DAILY [facility] Last Admin: 02/04/17 09:07 Dose: 500 mg Chlordiazepoxide (Librium) 10 mg PO Q6 [facility] Last Admin: 02/04/17 09:07 Dose: 10 mg Enoxaparin Sodium (Lovenox) 40 mg SC DAILY [facility] PRN Reason: Protocol Last Admin: 02/04/17 09:06 Dose: 40 mg Ferrous Sulfate (Feosol) 325 mg PO BID [facility] Last Admin: 02/04/17 09:07 Dose: 325 mg Linezolid (Zyvox 600mg/300ml D5w) 600 mg in 300 mls @ 300 mls/hr IVPB Q12 [facility] PRN Reason: Protocol Last Admin: 02/03/17 21:18 Dose: 300 mls/hr Cefepime HCl 0.500 gm/ Sodium (Chloride) 50 mls @ 50 mls/hr IVPB Q12 [facility] PRN Reason: Protocol Last Admin: 02/04/17 09:15 Dose: 50 mls/hr Folic Acid 1 mg/ Sodium (Chloride) 50.2 mls @ 30.06 mls/hr IVPB DAILY [facility] Last Admin: 02/03/17 09:58 Dose: 30.06 mls/hr Lactated Ringer's (Lactated Ringer's) 1,000 mls @ 75 mls/hr IV .[id number] [facility] Lorazepam (Ativan) 1 mg IVP Q4 PRN PRN Reason: Symptoms of alcohol withdrawl Last Admin: 02/03/17 14:56 Dose: 1 mg Midazolam HCl (Versed Inj) 2 mg IVP ONCE PRN PRN Reason: Agitation/Restlessness Multivitamins/Minerals (Therapeutic-M Tab) 1 tab PO DAILY [facility] Last Admin: 02/04/17 09:07 Dose: 1 tab Oxycodone/Acetaminophen (Percocet 5/325 Mg Tab) 1 tab PO Q4 PRN PRN Reason: Pain, severe (8-10) Stop: 02/04/17 18:50 Last Admin: 02/04/17 09:01 Dose: 1 tab Oxycodone/Acetaminophen (Percocet 5/325 Mg Tab) 1 tab PO Q4 PRN PRN Reason: Pain, moderate (4-7) Stop: 02/06/17 21:03 Pantoprazole Sodium (Protonix Ec Tab) 20 mg PO BID [facility] Last Admin: 02/04/17 09:08 Dose: 20 mg Tamsulosin HCl (Flomax) 0.4 mg PO HS [facility] Last Admin: 02/03/17 22:44 Dose: 0.4 mg - Labs Labs: 02/04/17 06:25 02/04/17 06:25 PT 14.1 Seconds (9.8-13.1) H 02/01/17 17:18 INR 1.2 (0.9-1.2) 02/01/17 17:18 APTT 32.2 Seconds (25.6-37.1) 02/01/17 17:18 - Respiratory Exam Respiratory Exam: Clear to Ausculation Bilateral - Cardiovascular Exam Cardiovascular Exam: REGULAR RHYTHM, +S1, +S2 - Additional Findings Additional findings: OR NOTES REVIEWED Assessment and Plan - Assessment and Plan (Free Text) Assessment: S/P LEFT TKR WITH SUPERFICIAL DRAINAGE AND DEBRIDEMENT Plan: CONTINUE LOVENOX AND ANTIBIOTICS
--- NOTE | 2017-02-04 11:58 | CP.PCM.DIS ---
Provider - Provider Date of Admission: 02/01/17 19:07 Attending physician: Elba Valerio MD Consults: Anesthesiology: Johan Cardiology: Deneen Hematology: Dia Infectious Disease: Shara Orthopedics: Simeon Psychiatry: Jaida Time Spent in preparation of Discharge (in minutes): 25 Diagnosis - Discharge Diagnosis (1) Infection of left knee Status: Suspected Comment: Continue antibiotics- Cefepime, Zyvox. No fever at present, no leukocytosis. Left knee wound culture: pending. Blood c/s received: prelim- no growth, results to follow. Follow up with Dr. Hendrix. Keep dressing clean , dry, intact (2) DVT prophylaxis Status: Acute Comment: Continue Lovenox (3) Status post knee replacement Status: Chronic Comment: TKR performed on 12/27/16 (4) Alcoholic liver disease Status: Chronic Comment: sec to Alcoholism. Pt follows up with a GI specialist in [facility] Course - Lab Results Lab Results: Micro Results 02/03/17 18:11 Knee - Left Gram Stain - Final 02/03/17 18:11 Knee - Left Wound Culture - Preliminary NO GROWTH AFTER 24 HOURS 02/03/17 18:11 Knee - Left Gram Stain - Final 02/03/17 18:11 Knee - Left Wound Culture - Preliminary NO GROWTH AFTER 24 HOURS 02/03/17 18:11 Knee - Left Gram Stain - Final 02/03/17 18:11 Knee - Left Wound Culture - Preliminary NO GROWTH AFTER 24 HOURS 02/03/17 18:11 Knee - Left Gram Stain - Final 02/03/17 18:11 Knee - Left Wound Culture - Preliminary NO GROWTH AFTER 24 HOURS 02/03/17 18:11 Knee - Left Gram Stain - Final 02/03/17 18:11 Knee - Left Wound Culture - Preliminary NO GROWTH AFTER 24 HOURS 02/03/17 18:11 Knee - Left Gram Stain - Final 02/03/17 18:11 Knee - Left Wound Culture - Preliminary NO GROWTH AFTER 24 HOURS 02/03/17 18:11 Knee - Left Gram Stain - Final 02/03/17 18:11 Knee - Left Wound Culture - Preliminary NO GROWTH AFTER 24 HOURS 02/03/17 18:11 Knee - Left Gram Stain - Final 02/03/17 18:11 Knee - Left Wound Culture - Preliminary NO GROWTH AFTER 24 HOURS 02/03/17 17:00 Knee - Right Gram Stain - Final 02/03/17 17:00 Knee - Right Wound Culture - Preliminary NO GROWTH AFTER 24 HOURS 02/03/17 17:00 Knee - Right Gram Stain - Final 02/03/17 17:00 Knee - Right Wound Culture - Preliminary NO GROWTH AFTER 24 HOURS 02/03/17 17:00 Knee - Right Gram Stain - Final 02/03/17 17:00 Knee - Right Wound Culture - Preliminary NO GROWTH AFTER 24 HOURS 02/03/17 17:00 Knee - Right Gram Stain - Final 02/03/17 17:00 Knee - Right Wound Culture - Preliminary NO GROWTH AFTER 24 HOURS 02/03/17 17:00 Knee - Right Gram Stain - Final 02/03/17 17:00 Knee - Right Wound Culture - Preliminary NO GROWTH AFTER 24 HOURS 02/03/17 17:00 Knee - Right Gram Stain - Final 02/03/17 17:00 Knee - Right Wound Culture - Preliminary NO GROWTH AFTER 24 HOURS 02/03/17 17:00 Knee - Right Gram Stain - Preliminary 02/03/17 17:00 Knee - Right Wound Culture - Preliminary NO GROWTH AFTER 24 HOURS 02/03/17 17:00 Knee - Right Gram Stain - Preliminary 02/03/17 17:00 Knee - Right Wound Culture - Preliminary NO GROWTH AFTER 24 HOURS 02/01/17 18:30 Knee - Left Gram Stain - Final 02/01/17 18:30 Knee - Left Wound Culture - Final Staphylococcus Aureus 02/03/17 17:00 Knee - Left Gram Stain - Final 02/03/17 18:03 Knee - Left Gram Stain - Final 02/01/17 17:45 Blood Blood Culture - Preliminary NO GROWTH AFTER 48 HOURS 02/01/17 17:15 Blood Blood Culture - Preliminary NO GROWTH AFTER 48 HOURS 02/01/17 18:48 Urine Urine Culture - Final No Growth (<1,000 CFU/ML) 02/01/17 18:13 Throat Group A Strep Throat Culture - Final NO BETA STREP GROUP A ISOLATED. Most Recent Lab Values WBC 5.2 K/uL (4.8-10.8) 02/04/17 06:25 RBC 3.10 Mil/uL (4.40-5.90) L 02/04/17 06:25 Hgb 10.0 g/dL (12.0-18.0) L 02/04/17 06:25 Hct 29.8 % (35.0-51.0) L 02/04/17 06:25 MCV 96.3 fl (80.0-94.0) H 02/04/17 06:25 MCH 32.3 pg (27.0-31.0) H 02/04/17 06:25 MCHC 33.5 g/dL (33.0-37.0) 02/04/17 06:25 RDW 15.6 % (11.5-14.5) H 02/04/17 06:25 Plt Count 222 K/uL (130-400) 02/04/17 06:25 MPV 8.2 fl (7.2-11.7) 02/04/17 06:25 Neut % (Auto) 76.6 % (50.0-75.0) H 02/04/17 06:25 Lymph % (Auto) 5.2 % (20.0-40.0) L 02/04/17 06:25 Orange % (Auto) 18.1 % (0.0-10.0) H 02/04/17 06:25 Eos % (Auto) 0.0 % (0.0-4.0) 02/04/17 06:25 Baso % (Auto) 0.1 % (0.0-2.0) 02/04/17 06:25 Neut # 4.0 K/uL (1.8-7.0) 02/04/17 06:25 Lymph # 0.3 K/uL (1.0-4.3) L 02/04/17 06:25 Orange # 0.9 K/uL (0.0-0.8) H 02/04/17 06:25 Eos # 0.0 K/uL (0.0-0.7) 02/04/17 06:25 Baso # 0.0 K/uL (0.0-0.2) 02/04/17 06:25 Neutrophils % (Manual) 61 % (42-75) 02/03/17 06:10 Band Neutrophils % 3 % (0-2) H 02/01/17 17:18 Lymphocytes % (Manual) 9 % (20-50) L 02/03/17 06:10 Monocytes % (Manual) 28 % (0-10) H 02/03/17 06:10 Eosinophils % (Manual) 2 % (0-7) 02/03/17 06:10 Toxic Granulation Present 02/03/17 06:10 Platelet Estimate Normal (NORMAL) 02/03/17 06:10 Plt Clumps, EDTA Present 02/03/17 06:10 Large Platelets Present 02/02/17 05:25 Hypochromasia (manual) Slight 02/03/17 06:10 Poikilocytosis (manual Slight 02/01/17 17:18 Anisocytosis (manual) Slight 02/03/17 06:10 Macrocytosis (manual) Slight 02/01/17 17:18 Tear Drop Cells Slight 02/03/17 06:10 Ovalocytes Slight 02/02/17 05:25 PT 14.1 Seconds (9.8-13.1) H 02/01/17 17:18 INR 1.2 (0.9-1.2) 02/01/17 17:18 APTT 32.2 Seconds (25.6-37.1) 02/01/17 17:18 Sodium 139 mmol/l (132-148) 02/04/17 06:25 Potassium 3.8 MMOL/L (3.6-5.0) 02/04/17 06:25 Chloride 105 mmol/L (98-107) 02/04/17 06:25 Carbon Dioxide 24 mmol/L (22-30) 02/04/17 06:25 Anion Gap 14 (10-20) 02/04/17 06:25 BUN 17 mg/dl (9-20) 02/04/17 06:25 Creatinine 0.8 mg/dl (0.8-1.5) 02/04/17 06:25 Est GFR ( Amer) > 60 02/04/17 06:25 Est GFR (Non-Af Amer) > 60 02/04/17 06:25 POC Glucose (mg/dL) 149 mg/dL (65-110) H 02/01/17 17:13 Random Glucose 149 mg/dL (75-110) H 02/04/17 06:25 Lactic Acid 0.9 MMOL/L (0.7-2.1) 02/01/17 18:13 Calcium 8.8 mg/dL (8.4-10.2) 02/04/17 06:25 Magnesium 1.5 MG/DL (1.6-2.3) L 02/04/17 06:25 Total Bilirubin 0.7 mg/dl (0.2-1.3) 02/04/17 06:25 AST 39 U/L (17-59) 02/04/17 06:25 ALT 35 U/L (21-72) 02/04/17 06:25 Alkaline Phosphatase 56 U/L (38-126) 02/04/17 06:25 Total Protein 5.9 G/DL (6.3-8.2) L 02/04/17 06:25 Albumin 3.0 g/dL (3.5-5.0) L 02/04/17 06:25 Globulin 3.0 gm/dL (2.2-3.9) 02/04/17 06:25 Albumin/Globulin Ratio 1.0 (1.0-2.1) 02/04/17 06:25 Prostate Specific Ag 7.80 ng/ML (0.00-4.0) H 02/01/17 18:30 Free PSA 1.1 ng/mL 02/02/17 09:07 % Free PSA Not calculated Percent (>25) 02/02/17 09:07 Total PSA 11.9 ng/mL (<=4.0) H 02/02/17 09:07 Prostate Cancer Risk >50 Percent 02/02/17 09:07 Urine Color Akiko (YELLOW) 02/01/17 18:48 Urine Clarity Cloudy (Clear) 02/01/17 18:48 Urine pH 5.0 (5.0-8.0) 02/01/17 18:48 Ur Specific [place] 1.020 (1.003-1.030) 02/01/17 18:48 Urine Protein 100 mg/dL (NEGATIVE) 02/01/17 18:48 Urine Glucose (UA) Neg mg/dL (Normal) 02/01/17 18:48 Urine Ketones Negative mg/dL (NEGATIVE) 02/01/17 18:48 Urine Blood Small (NEGATIVE) 02/01/17 18:48 Urine Nitrate Negative (NEGATIVE) 02/01/17 18:48 Urine Bilirubin Negative (NEGATIVE) 02/01/17 18:48 Urine Urobilinogen 0.2-1.0 mg/dL (0.2-1.0) 02/01/17 18:48 Ur Leukocyte Esterase Neg Tali/uL (Negative) 02/01/17 18:48 Urine RBC (Auto) 13 /hpf (0-3) H 02/01/17 18:48 Urine Microscopic WBC 8 /hpf (0-5) H 02/01/17 18:48 Ur Squamous Epith Cells < 1 /hpf (0-5) 02/01/17 18:48 Urine Bacteria Rare (<OCC) 02/01/17 18:48 Hyaline Casts 3-5 /hpf (0-2) H 02/01/17 18:48 Fluid Type Synovial fluid 02/03/17 18:03 Synovial WBC 433.0 /mm3 (0.0-150.0) H 02/03/17 18:03 Synovial RBC 56860.0 /mm3 (0.0-0.0) H 02/03/17 18:03 Synovial Neutrophils 59.0 % (0-0) H 02/03/17 18:03 Synovial Lymphocytes 24.0 % (0-0) H 02/03/17 18:03 Synov Monos/Macrophage 17 % (0-0) H 02/03/17 18:03 Synovial Fluid Comment Cloudy 02/03/17 18:03 Urine Opiates Screen Negative (NEGATIVE) 02/01/17 19:52 Urine Methadone Screen Negative (NEGATIVE) 02/01/17 19:52 Ur Barbiturates Screen Negative (NEGATIVE) 02/01/17 19:52 Ur Phencyclidine Scrn Negative (NEGATIVE) 02/01/17 19:52 Ur Amphetamines Screen Negative (NEGATIVE) 02/01/17 19:52 U Benzodiazepines Scrn Positive (NEGATIVE) 02/01/17 19:52 U Oth Cocaine Metabols Negative (NEGATIVE) 02/01/17 19:52 U Cannabinoids Screen Negative (NEGATIVE) 02/01/17 19:52 Alcohol, Quantitative < 10 mg/dl (0-10) 02/01/17 17:18 Influenza Typ A,B (EIA) Negative for flu a/b (NEGATIVE) 02/01/17 18:13 Grp A Beta Strep Ag Negative (NEGATIVE) 02/01/17 18:13 Blood Type O POSITIVE 02/03/17 16:00 Antibody Screen Negative 02/03/17 16:00 Crossmatch See Detail 02/03/17 16:00 BBK History Checked Patient has bt 02/03/17 16:00 - Hospital Course Hospital Course: 61 year old male with PMHx of HTN, HLD, BPH, OA of left knee first admitted to hospital through the ED for suspected infection of left knee. Patient had undergone a previous total knee replacement on 12/27/16. Patient was cleared by cardiology and underwent an incision and drainage of his left knee on 02/03/[address] Hendrix after which he was admitted to the Med/Surg unit and treated with IV Cefepime and Lovenox. Patient also has a history of alcoholism for which he was treated with Ativan and Librium while in house to combat symptoms of withdrawal. It was also found that patients PSA was elevated during his stay for which Flomax is given. Patient advised to continue his regular at home meds and follow up with urologist upon discharge. Patient is to begin Levoquin upon discharge and follow up with Dr. Hendrix as an outpatient. Patient is hemodynamically stable and afebrile at this time. He will be discharged home later today - Date & Time of H&P Date of H&P: 02/04/17 Time of H&P: 12:35 Discharge Exam - Head Exam Head Exam: ATRAUMATIC, NORMAL INSPECTION, NORMOCEPHALIC - Eye Exam Eye Exam: EOMI, Normal appearance, PERRL Pupil Exam: NORMAL ACCOMODATION, PERRL - ENT Exam ENT Exam: Mucous Membranes Moist, Normal Exam - Neck Exam Neck exam: Full Rom, Normal Inspection - Respiratory Exam Respiratory Exam: NORMAL BREATHING PATTERN - Cardiovascular Exam Cardiovascular Exam: REGULAR RHYTHM, +S1, +S2. absent: JVD - GI/Abdominal Exam GI & Abdominal Exam: Normal Bowel Sounds, Soft. absent: Distended - Rectal Exam Rectal Exam: Deferred - Extremities Exam Extremities exam: normal capillary refill, pedal pulses present - Neurological Exam Neurological exam: Alert, Oriented x3 - Psychiatric Exam Psychiatric exam: Normal Affect, Normal Mood Discharge Plan - Follow Up Plan Condition: GOOD Disposition: HOME/ ROUTINE
[2017-02-04] MEDS: Folic Acid 1 MG in Sodium Chloride 0.9% 50 ML IVPB SCH (12:17)
[2017-02-04] MEDS: Linezolid 600 mg in D5W 300 ml 600 MG/300 ML BAG IVPB SCH ×2 (12:19→12:20)
[2017-02-04] MEDS ORDERED: Lidocaine 1% Inj (20ml) ONE (14:18)
[2017-02-04 14:23] VITALS: RESP 18
--- NOTE | 2017-02-04 14:35 | PCM.SURG1 ---
Surgeon's Initial Post Op Note - Surgeon's Notes Surgeon: Ty Parham MD Speech Pathology Assistant: NONE Type of Anesthesia: Local Pre-Operative Diagnosis: Knee infection Operative Findings: Patent left basilic vein Post-Operative Diagnosis: Knee infection Operation Performed: Single lumen picc, 39 cm, left basilic vein. Tip is in the SVC. Specimen/Specimens Removed: NONE Estimated Blood Loss: EBL {In ML}: 2 Blood Products Given: N/A Drains Used: No Drains Post-Op Condition: Fair Date of Surgery/Procedure: 02/04/17 Time of Surgery/Procedure: 14:30
--- NOTE | 2017-02-04 15:06 | RAD ---
PROCEDURE: Left Knee Radiographs. HISTORY: Pain. COMPARISON: Knee radiographs dated 02/01/2017. FINDINGS: The patient is status post antibiotic bead placement within the suprapatellar bursa and within the tibial femoral joint space. Arthroplasty hardware remains in place without significant change in appearance. No periprosthetic lucency is seen to suggest component loosening or fracture. IMPRESSION: Findings as above.
--- NOTE | 2017-02-04 15:36 | CP.PCM.CON ---
History of Present Illness - History of Present Illness History of Present Illness: consult requested for hx of alcohol use disorder pt is 61 y/o male with hx of Alcoholism, HTN, Hyperlipidemia, BPH, pt reported being absytinent for the past six months, denied any previous formal psychiatric hospitalizations or treatment, reported only seeing a counselor long tome ago, would not specify for help with alcohol use, sporadic attendance of AA meetings in the past pt denied any current use of alcohol or any other substance denied any symptoms of annamaria or depression denied psychotic symptoms denied suicidal or homicidal ideations denied any need for psychiatric services pt seems to be minimizing his alcohol use disorder Past Patient History - Infectious Disease Hx of Infectious Diseases: None - Tetanus Immunizations Tetanus Immunization: Unknown - Past Medical History & Family History Past Medical History?: Yes - Past Social History Smoking Status: Never Smoked - CARDIAC Hx Cardiac Disorders: Yes Hx Hypercholesterolemia: Yes Hx Hypertension: Yes - PULMONARY Hx Respiratory Disorders: No Hx Asthma: No - NEUROLOGICAL Hx Neurological Disorder: No - HEENT Hx HEENT Problems: No - RENAL Hx Chronic Kidney Disease: No - ENDOCRINE/METABOLIC Hx Endocrine Disorders: No Hx Diabetes Mellitus Type 2: No - HEMATOLOGICAL/ONCOLOGICAL Hx Blood Disorders: No Hx AIDS: No Hx Hepatitis C: No Hx Human Immunodeficiency Virus (HIV): No - INTEGUMENTARY Hx Dermatological Problems: No - MUSCULOSKELETAL/RHEUMATOLOGICAL Hx Musculoskeletal Disorders: Yes Hx Arthritis: Yes Hx Falls: Yes (12 years ago, hx of etoh abuse) Hx Fractures: Yes (fell 12 yrs ago fx 2 ribs R side) Hx Osteoarthritis: Yes - GASTROINTESTINAL Hx Gastrointestinal Disorders: Yes (Hx of Parekh's esophagus) - GENITOURINARY/GYNECOLOGICAL Hx Genitourinary Disorders: Yes Hx Prostate Problems: Yes (BPH diagnosed 1 yr ago) - PSYCHIATRIC Hx Psychophysiologic Disorder: Yes Hx Anxiety: Yes Hx Depression: Yes Hx Substance Use: No Other/Comment: alcoholism/ etoh abuse - SURGICAL HISTORY Hx Surgeries: Yes Hx Arthroscopy: Yes (L TKR 12/27/16) Hx Orthopedic Surgery: Yes (left Clavicular fracture surgery, left TKR) - ANESTHESIA Hx Anesthesia: Yes Hx Anesthesia Reactions: No Hx Malignant Hyperthermia: No Meds Allergies/Adverse Reactions: Allergies Allergy/AdvReac Type Severity Reaction Status Date / Time silk AdvReac BLISTER Verified 12/24/16 08:42 - Medications Medications: Current Medications Acetaminophen (Tylenol 325mg Tab) 650 mg PO Q4 PRN PRN Reason: Pain, Mild (1-3) Calcium Carbonate (Oscal) 500 mg PO DAILY [facility] Last Admin: 02/04/17 09:07 Dose: 500 mg Chlordiazepoxide (Librium) 10 mg PO Q6 [facility] Last Admin: 02/04/17 09:07 Dose: 10 mg Enoxaparin Sodium (Lovenox) 40 mg SC DAILY [facility] PRN Reason: Protocol Last Admin: 02/04/17 09:06 Dose: 40 mg Ferrous Sulfate (Feosol) 325 mg PO BID [facility] Last Admin: 02/04/17 09:07 Dose: 325 mg Linezolid (Zyvox 600mg/300ml D5w) 600 mg in 300 mls @ 300 mls/hr IVPB Q12 [facility] PRN Reason: Protocol Last Admin: 02/04/17 12:20 Dose: 300 mls/hr Cefepime HCl 0.500 gm/ Sodium (Chloride) 50 mls @ 50 mls/hr IVPB Q12 [facility] PRN Reason: Protocol Last Admin: 02/04/17 09:15 Dose: 50 mls/hr Folic Acid 1 mg/ Sodium (Chloride) 50.2 mls @ 30.06 mls/hr IVPB DAILY [facility] Last Admin: 02/04/17 12:17 Dose: 30.06 mls/hr Lactated Ringer's (Lactated Ringer's) 1,000 mls @ 75 mls/hr IV .[id number] [facility] Last Admin: 02/04/17 12:26 Dose: Not Given Lorazepam (Ativan) 1 mg IVP Q4 PRN PRN Reason: Symptoms of alcohol withdrawl Last Admin: 02/03/17 14:56 Dose: 1 mg Midazolam HCl (Versed Inj) 2 mg IVP ONCE PRN PRN Reason: Agitation/Restlessness Multivitamins/Minerals (Therapeutic-M Tab) 1 tab PO DAILY [facility] Last Admin: 02/04/17 09:07 Dose: 1 tab Oxycodone/Acetaminophen (Percocet 5/325 Mg Tab) 1 tab PO Q4 PRN PRN Reason: Pain, severe (8-10) Stop: 02/04/17 18:50 Last Admin: 02/04/17 09:01 Dose: 1 tab Oxycodone/Acetaminophen (Percocet 5/325 Mg Tab) 1 tab PO Q4 PRN PRN Reason: Pain, moderate (4-7) Stop: 02/06/17 21:03 Pantoprazole Sodium (Protonix Ec Tab) 20 mg PO BID [facility] Last Admin: 02/04/17 09:08 Dose: 20 mg Tamsulosin HCl (Flomax) 0.4 mg PO HS [facility] Last Admin: 02/03/17 22:44 Dose: 0.4 mg Physical Exam - Psychiatric Exam Additional comments: pt seen calm cooperative good eye contact speech normal reoported mood fine, affect appropriate to thought content, thopught form coherent denied any current suicidal or homicidal ideations, denied perceeptual disturbances, none licited alert awake ox3 fair insight and judgement Results - Vital Signs Recent Vital Signs: Last Vital Signs Temp 100.0 F H 02/04/17 14:19 Pulse 90 02/04/17 14:19 Resp 18 02/04/17 14:19 BP 145/88 02/04/17 14:19 Pulse Ox 100 02/04/17 14:19 - Labs Result Diagrams: 02/04/17 06:25 02/04/17 06:25 Labs: Laboratory Results - last 24 hr 02/02/17 02/03/17 02/03/17 09:07 16:00 17:00 WBC RBC Hgb Hct MCV MCH MCHC RDW Plt Count MPV Neut % (Auto) Lymph % (Auto) [place] % (Auto) Eos % (Auto) Baso % (Auto) Neut # Lymph # [place] # Eos # Baso # Sodium Potassium Chloride Carbon Dioxide Anion Gap BUN Creatinine Est GFR ( Amer) Est GFR (Non-Af Amer) Random Glucose Calcium Magnesium Total Bilirubin AST ALT Alkaline Phosphatase Total Protein Albumin Globulin Albumin/Globulin Ratio Free PSA 1.1 % Free PSA Not calculated Total PSA 11.9 H Prostate Cancer Risk >50 Fluid Type Synovial fluid Synovial WBC 74169.0 H Synovial [place] 848[address].0 H Synovial Neutrophils 62.0 H Synovial Lymphocytes 17.0 H Synov Monos/Macrophage 21 H Synovial Fluid Comment Cloudy Blood Type O POSITIVE Antibody Screen Negative Crossmatch See Detail BBK History Checked Patient has bt 02/03/17 02/03/17 02/04/17 17:00 18:03 06:25 WBC 5.2 RBC 3.10 L Hgb 10.0 L Hct 29.8 L MCV 96.3 H MCH 32.3 H MCHC 33.5 RDW 15.6 H Plt Count 222 MPV 8.2 Neut % (Auto) 76.6 H Lymph % (Auto) 5.2 L [place] % (Auto) 18.1 H Eos % (Auto) 0.0 Baso % (Auto) 0.1 Neut # 4.0 Lymph # 0.3 L [place] # 0.9 H Eos # 0.0 Baso # 0.0 Sodium Potassium Chloride Carbon Dioxide Anion Gap BUN Creatinine Est GFR ( Amer) Est GFR (Non-Af Amer) Random Glucose Calcium Magnesium Total Bilirubin AST ALT Alkaline Phosphatase Total Protein Albumin Globulin Albumin/Globulin Ratio Free PSA % Free PSA Total PSA Prostate Cancer Risk Fluid Type Synovial fluid Synovial fluid Synovial WBC 433.0 H Synovial RBC 02002.0 H Synovial Neutrophils 59.0 H Synovial Lymphocytes 24.0 H Synov Monos/Macrophage 17 H Synovial Fluid Comment Cloudy Blood Type Antibody Screen Crossmatch BBK History Checked 02/04/17 06:25 WBC RBC Hgb Hct MCV MCH MCHC RDW Plt Count MPV Neut % (Auto) Lymph % (Auto) [place] % (Auto) Eos % (Auto) Baso % (Auto) Neut # Lymph # [place] # Eos # Baso # Sodium 139 Potassium 3.8 Chloride 105 Carbon Dioxide 24 Anion Gap 14 BUN 17 Creatinine 0.8 Est GFR ( Amer) > 60 Est GFR (Non-Af Amer) > 60 Random Glucose 149 H Calcium 8.8 Magnesium 1.5 L Total Bilirubin 0.7 AST 39 ALT 35 Alkaline Phosphatase 56 Total Protein 5.9 L Albumin 3.0 L Globulin 3.0 Albumin/Globulin Ratio 1.0 Free PSA % Free PSA Total PSA Prostate Cancer Risk Fluid Type Synovial WBC Synovial RBC Synovial Neutrophils Synovial Lymphocytes Synov Monos/Macrophage Synovial Fluid Comment Blood Type Antibody Screen Crossmatch BBK History Checked Assessment & Plan - Assessment and Plan (Free Text) Assessment: alcohol use disorder in early partial remission pt at current menta; status denied suicidal or homicidal ideations denied perceeptual disturbances not danger to self or others denied any current need for help with the alcohol use disorder pt is psychiatrically cleared and advise dto pursue AA meetings in his area for help with sustained alcohol use remission - Date & Time Date: 02/04/17 Time: 15:36
--- NOTE | 2017-02-04 15:57 | CP.PCM.DIS ---
Provider - Provider Date of Admission: 02/01/17 19:07 Attending physician: Elba Valerio MD Hospital Course - Lab Results Lab Results: Micro Results 02/03/17 18:11 Other: Please Indicate Mycobacterial Culture - Preliminary 02/03/17 17:00 Other: Please Indicate Mycobacterial Culture - Preliminary 02/03/17 17:00 Knee Right Fungal Culture - Preliminary 02/03/17 18:11 Knee - Left Gram Stain - Final 02/03/17 18:11 Knee - Left Wound Culture - Preliminary NO GROWTH AFTER 24 HOURS 02/03/17 18:11 Knee - Left Gram Stain - Final 02/03/17 18:11 Knee - Left Wound Culture - Preliminary NO GROWTH AFTER 24 HOURS 02/03/17 18:11 Knee - Left Gram Stain - Final 02/03/17 18:11 Knee - Left Wound Culture - Preliminary NO GROWTH AFTER 24 HOURS 02/03/17 18:11 Knee - Left Gram Stain - Final 02/03/17 18:11 Knee - Left Wound Culture - Preliminary NO GROWTH AFTER 24 HOURS 02/03/17 18:11 Knee - Left Gram Stain - Final 02/03/17 18:11 Knee - Left Wound Culture - Preliminary NO GROWTH AFTER 24 HOURS 02/03/17 18:11 Knee - Left Gram Stain - Final 02/03/17 18:11 Knee - Left Wound Culture - Preliminary NO GROWTH AFTER 24 HOURS 02/03/17 18:11 Knee - Left Gram Stain - Final 02/03/17 18:11 Knee - Left Wound Culture - Preliminary NO GROWTH AFTER 24 HOURS 02/03/17 18:11 Knee - Left Gram Stain - Final 02/03/17 18:11 Knee - Left Wound Culture - Preliminary NO GROWTH AFTER 24 HOURS 02/03/17 17:00 Knee - Right Gram Stain - Final 02/03/17 17:00 Knee - Right Wound Culture - Preliminary NO GROWTH AFTER 24 HOURS 02/03/17 17:00 Knee - Right Gram Stain - Final 02/03/17 17:00 Knee - Right Wound Culture - Preliminary NO GROWTH AFTER 24 HOURS 02/03/17 17:00 Knee - Right Gram Stain - Final 02/03/17 17:00 Knee - Right Wound Culture - Preliminary NO GROWTH AFTER 24 HOURS 02/03/17 17:00 Knee - Right Gram Stain - Final 02/03/17 17:00 Knee - Right Wound Culture - Preliminary NO GROWTH AFTER 24 HOURS 02/03/17 17:00 Knee - Right Gram Stain - Final 02/03/17 17:00 Knee - Right Wound Culture - Preliminary NO GROWTH AFTER 24 HOURS 02/03/17 17:00 Knee - Right Gram Stain - Final 02/03/17 17:00 Knee - Right Wound Culture - Preliminary NO GROWTH AFTER 24 HOURS 02/03/17 17:00 Knee - Right Gram Stain - Preliminary 02/03/17 17:00 Knee - Right Wound Culture - Preliminary NO GROWTH AFTER 24 HOURS 02/03/17 17:00 Knee - Right Gram Stain - Preliminary 02/03/17 17:00 Knee - Right Wound Culture - Preliminary NO GROWTH AFTER 24 HOURS 02/01/17 18:30 Knee - Left Gram Stain - Final 02/01/17 18:30 Knee - Left Wound Culture - Final Staphylococcus Aureus 02/03/17 17:00 Knee - Left Gram Stain - Final 02/03/17 18:03 Knee - Left Gram Stain - Final 02/01/17 17:45 Blood Blood Culture - Preliminary NO GROWTH AFTER 48 HOURS 02/01/17 17:15 Blood Blood Culture - Preliminary NO GROWTH AFTER 48 HOURS 02/01/17 18:48 Urine Urine Culture - Final No Growth (<1,000 CFU/ML) 02/01/17 18:13 Throat Group A Strep Throat Culture - Final NO BETA STREP GROUP A ISOLATED. Most Recent Lab Values WBC 5.2 K/uL (4.8-10.8) 02/04/17 06:25 RBC 3.10 Mil/uL (4.40-5.90) L 02/04/17 06:25 Hgb 10.0 g/dL (12.0-18.0) L 02/04/17 06:25 Hct 29.8 % (35.0-51.0) L 02/04/17 06:25 MCV 96.3 fl (80.0-94.0) H 02/04/17 06:25 MCH 32.3 pg (27.0-31.0) H 02/04/17 06:25 MCHC 33.5 g/dL (33.0-37.0) 02/04/17 06:25 RDW 15.6 % (11.5-14.5) H 02/04/17 06:25 Plt Count 222 K/uL (130-400) 02/04/17 06:25 MPV 8.2 fl (7.2-11.7) 02/04/17 06:25 Neut % (Auto) 76.6 % (50.0-75.0) H 02/04/17 06:25 Lymph % (Auto) 5.2 % (20.0-40.0) L 02/04/17 06:25 [place] % (Auto) 18.1 % (0.0-10.0) H 02/04/17 06:25 Eos % (Auto) 0.0 % (0.0-4.0) 02/04/17 06:25 Baso % (Auto) 0.1 % (0.0-2.0) 02/04/17 06:25 Neut # 4.0 K/uL (1.8-7.0) 02/04/17 06:25 Lymph # 0.3 K/uL (1.0-4.3) L 02/04/17 06:25 [place] # 0.9 K/uL (0.0-0.8) H 02/04/17 06:25 Eos # 0.0 K/uL (0.0-0.7) 02/04/17 06:25 Baso # 0.0 K/uL (0.0-0.2) 02/04/17 06:25 Neutrophils % (Manual) 61 % (42-75) 02/03/17 06:10 Band Neutrophils % 3 % (0-2) H 02/01/17 17:18 Lymphocytes % (Manual) 9 % (20-50) L 02/03/17 06:10 Monocytes % (Manual) 28 % (0-10) H 02/03/17 06:10 Eosinophils % (Manual) 2 % (0-7) 02/03/17 06:10 Toxic Granulation Present 02/03/17 06:10 Platelet Estimate Normal (NORMAL) 02/03/17 06:10 Plt Clumps, EDTA Present 02/03/17 06:10 Large Platelets Present 02/02/17 05:25 Hypochromasia (manual) Slight 02/03/17 06:10 Poikilocytosis (manual Slight 02/01/17 17:18 Anisocytosis (manual) Slight 02/03/17 06:10 Macrocytosis (manual) Slight 02/01/17 17:18 Tear Drop Cells Slight 02/03/17 06:10 Ovalocytes Slight 02/02/17 05:25 PT 14.1 Seconds (9.8-13.1) H 02/01/17 17:18 INR 1.2 (0.9-1.2) 02/01/17 17:18 APTT 32.2 Seconds (25.6-37.1) 02/01/17 17:18 Sodium 139 mmol/l (132-148) 02/04/17 06:25 Potassium 3.8 MMOL/L (3.6-5.0) 02/04/17 06:25 Chloride 105 mmol/L (98-107) 02/04/17 06:25 Carbon Dioxide 24 mmol/L (22-30) 02/04/17 06:25 Anion Gap 14 (10-20) 02/04/17 06:25 BUN 17 mg/dl (9-20) 02/04/17 06:25 Creatinine 0.8 mg/dl (0.8-1.5) 02/04/17 06:25 Est GFR ( Amer) > 60 02/04/17 06:25 Est GFR (Non-Af Amer) > 60 02/04/17 06:25 POC Glucose (mg/dL) 149 mg/dL (65-110) H 02/01/17 17:13 Random Glucose 149 mg/dL (75-110) H 02/04/17 06:25 Lactic Acid 0.9 MMOL/L (0.7-2.1) 02/01/17 18:13 Calcium 8.8 mg/dL (8.4-10.2) 02/04/17 06:25 Magnesium 1.5 MG/DL (1.6-2.3) L 02/04/17 06:25 Total Bilirubin 0.7 mg/dl (0.2-1.3) 02/04/17 06:25 AST 39 U/L (17-59) 02/04/17 06:25 ALT 35 U/L (21-72) 02/04/17 06:25 Alkaline Phosphatase 56 U/L (38-126) 02/04/17 06:25 Total Protein 5.9 G/DL (6.3-8.2) L 02/04/17 06:25 Albumin 3.0 g/dL (3.5-5.0) L 02/04/17 06:25 Globulin 3.0 gm/dL (2.2-3.9) 02/04/17 06:25 Albumin/Globulin Ratio 1.0 (1.0-2.1) 02/04/17 06:25 Prostate Specific Ag 7.80 ng/ML (0.00-4.0) H 02/01/17 18:30 Free PSA 1.1 ng/mL 02/02/17 09:07 % Free PSA Not calculated Percent (>25) 02/02/17 09:07 Total PSA 11.9 ng/mL (<=4.0) H 02/02/17 09:07 Prostate Cancer Risk >50 Percent 02/02/17 09:07 Urine Color Akiko (YELLOW) 02/01/17 18:48 Urine Clarity Cloudy (Clear) 02/01/17 18:48 Urine pH 5.0 (5.0-8.0) 02/01/17 18:48 Ur Specific Welch 1.020 (1.003-1.030) 02/01/17 18:48 Urine Protein 100 mg/dL (NEGATIVE) 02/01/17 18:48 Urine Glucose (UA) Neg mg/dL (Normal) 02/01/17 18:48 Urine Ketones Negative mg/dL (NEGATIVE) 02/01/17 18:48 Urine Blood Small (NEGATIVE) 02/01/17 18:48 Urine Nitrate Negative (NEGATIVE) 02/01/17 18:48 Urine Bilirubin Negative (NEGATIVE) 02/01/17 18:48 Urine Urobilinogen 0.2-1.0 mg/dL (0.2-1.0) 02/01/17 18:48 Ur Leukocyte Esterase Neg Tali/uL (Negative) 02/01/17 18:48 Urine RBC (Auto) 13 /hpf (0-3) H 02/01/17 18:48 Urine Microscopic WBC 8 /hpf (0-5) H 02/01/17 18:48 Ur Squamous Epith Cells < 1 /hpf (0-5) 02/01/17 18:48 Urine Bacteria Rare (<OCC) 02/01/17 18:48 Hyaline Casts 3-5 /hpf (0-2) H 02/01/17 18:48 Fluid Type Synovial fluid 02/03/17 18:03 Synovial WBC 433.0 /mm3 (0.0-150.0) H 02/03/17 18:03 Synovial RBC 37625.0 /mm3 (0.0-0.0) H 02/03/17 18:03 Synovial Neutrophils 59.0 % (0-0) H 02/03/17 18:03 Synovial Lymphocytes 24.0 % (0-0) H 02/03/17 18:03 Synov Monos/Macrophage 17 % (0-0) H 02/03/17 18:03 Synovial Fluid Comment Cloudy 02/03/17 18:03 Urine Opiates Screen Negative (NEGATIVE) 02/01/17 19:52 Urine Methadone Screen Negative (NEGATIVE) 02/01/17 19:52 Ur Barbiturates Screen Negative (NEGATIVE) 02/01/17 19:52 Ur Phencyclidine Scrn Negative (NEGATIVE) 02/01/17 19:52 Ur Amphetamines Screen Negative (NEGATIVE) 02/01/17 19:52 U Benzodiazepines Scrn Positive (NEGATIVE) 02/01/17 19:52 U Oth Cocaine Metabols Negative (NEGATIVE) 02/01/17 19:52 U Cannabinoids Screen Negative (NEGATIVE) 02/01/17 19:52 Alcohol, Quantitative < 10 mg/dl (0-10) 02/01/17 17:18 Influenza Typ A,B (EIA) Negative for flu a/b (NEGATIVE) 02/01/17 18:13 Grp A Beta Strep Ag Negative (NEGATIVE) 02/01/17 18:13 Blood Type O POSITIVE 02/03/17 16:00 Antibody Screen Negative 02/03/17 16:00 Crossmatch See Detail 02/03/17 16:00 BBK History Checked Patient has bt 02/03/17 16:00 Discharge Exam - Head Exam Head Exam: ATRAUMATIC, NORMAL INSPECTION, NORMOCEPHALIC Discharge Plan - Follow Up Plan Condition: GOOD Disposition: HOME/ ROUTINE Instructions: Incision and Drainage (DC)
[2017-02-04 16:05] VITALS: BP 133/83; PULSE 101; TEMP 98
[2017-02-04 18:45] VITALS: O2SAT 98
--- NOTE | 2017-02-04 19:43 | OP ---
PROCEDURE DATE: 02/03/2017 PREOPERATIVE DIAGNOSIS: Rule out septic left total knee replacement. POSTOPERATIVE DIAGNOSIS: Rule out septic left total knee replacement. PROCEDURES: 1. Revision left total knee replacement, one component. 2. Arthrotomy, irrigation, and debridement. 3. Arthrotomy and synovectomy. 4. Lateral patellar retinacular release. 5. Excision of skin, subcutaneous tissue, and muscle, culture and biopsy. SURGEON: Solitario Hendrix MD. PROJECT ADMINISTRATOR: Bonnie Harris, certified registered nursing technical services assistant. TYPE OF ANESTHESIA: General tracheal anesthesia. ANESTHESIA ADMINISTERED BY: Sadiq Metz MD COMPLICATIONS: None. DRAINS: None. Antibiotic-impregnated pellets of calcium sulfate were impregnated. OPERATIVE INDICATIONS: Tomer Eldridge is a 61-year-old gentleman who is an alcoholic who presents after successful total knee replacement. The patient had been exhibiting outward behavior including walking into my office on his hands and knees and rubbing the knee on the ground. The patient picked at the wound and put foreign substances including herbal creams on the wound. As a result, the patient developed drainage. The patient presented to my office and was sent to the emergency room as an emergency. The patient was evaluated and admitted. The patient was in delirium tremens. The patient was admitted. Stabilization was offered by the Internal Medicine service. The patient was seen by Cardiology, Dr. Brothers. Pros, cons, risks, and benefits of surgical approach were discussed. The concept of possible recurrent sepsis, the possibility of mechanical failure, infection, thromboembolic disease, secondary or tertiary surgery was discussed. The patient can no longer withstand the discomfort. After thoroughly discussing the pros, cons, risks, and benefits of arthrotomy; intravenous antibiotics for 6 weeks by PICC line; and tibial component revision, the possibility of later recurrent sepsis with possibility of removal of the prosthesis and insertion of antibiotic impregnated spacer was discussed. The situation was discussed at length with the patient's brother, Brendon, as well. The surgery was consented and indicated. DESCRIPTION OF PROCEDURE: After having obtained informed consent in the above fashion, after having identified side, site, and procedure and a critical pause/time-out; after the satisfactory induction of the anesthetic, the patient identified as Tomer Eldridge in the supine position with all bony prominences well padded. The left lower extremity was prepped and free draped in the usual fashion for lower extremity surgery. The tourniquet had been applied. The initial incision was extended two fingerbreadths distally and two fingerbreadths proximally. The skin incision was carried down through the skin and subcutaneous tissue. An ellipse of skin was developed in the skin and the incision was carried down through the skin and subcutaneous tissue and some muscle was excised as well. Medial arthrotomy was accomplished. There was found to be an egress of fluid superficially and this was sent for stat Gram stain, number of white cells per high-power field, aerobic, anaerobic, AFB, and fungal cultures. This having been accomplished, medial arthrotomy was accomplished. The patella was everted. The patella was found to be intact. There was found to be extensive synovitis and arthrotomy and synovectomy were accomplished, both anteriorly and posteriorly. The tibial polyethylene was removed with dislocation of the tibia. The tibia was dislocated. Foreign bodies were removed including suture and the polyethylene was removed from the tibial component. All components were found to be well fixed. There was no evidence of deep sepsis. Two aliquots of fluid were sent for stat Gram stain and number of white cells per high-power field. The initial superficial has 30-40 white cells per high-power field. The deep Gram stain has 0 to 6 white cells per high-power field. At this point in time since the components were well fixed and since it is subacute, less than 4 weeks since the surgery, probably closer to 3 weeks, the concept of tibial component revision, synovectomy, irrigation, debridement, and washout were decided upon and extensive synovectomy was accomplished. Incision and drainage was accomplished and biopsy and synovial fluid were sent for aerobic, anaerobic, AFB, and fungal cultures x2. At this point in time, the polyethylene insert of the appropriate size was placed in the knee. Flexion, extension was found to be excellent in balance. The patella was found to be balanced. A lateral patellar retinacular release was accomplished because there was a bit more stiffness to the tissue than initially seen. There was evidence of contracture. The wound was thoroughly irrigated. The appropriate sized polyethylene was impacted. Extensive irrigation, debridement, extensive synovectomy having been accomplished, the tourniquet was deflated. Hemostasis controlled with the Aquamantys. The knee was irrigated with 9 liters of antibiotic impregnated solution. Thorough synovectomy was accomplished. All foreign detritus is removed including previous sutures. The wound was thoroughly irrigated. Closures in layers with #1 Vicryl. At this point in time, stability was again tested. Flexion-extension gap was found to be excellent in balance, followed by #1 Vicryl, 0 Vicryl, 2-0 Vicryl, and jose for skin. Hemostasis was controlled. It should be noted prior to closure, calcium sulfate pellets, antibiotic-impregnated, were placed in the wound. Shadi Canela compression dressing and knee immobilizer was applied. The patient is stable in recovery. The concept that this procedure might not be sufficient and the concept of later component removal and insertion of antibiotic impregnated spacer was discussed at length as well. Solitario Hendrix MD
--- NOTE | 2017-02-07 11:20 | VASCULAR ---
PROCEDURE: Date of procedure: 02/04/2017 Procedure: 1. Placement of a left arm PICC with ultrasound and fluoroscopic guidance, CPT 91501 2. PICC tip confirmation with spot radiograph and is in the superior vena cava Medications: 3cc 1 percent lidocaine Total Fluoro time: 2.3 seconds Radiation: 0.36 mGy EBL: 3 cc HISTORY: Poor venous access TECHNIQUE: Following informed consent and procedure time-out, the patient placed supine on the interventional table and the left arm prepped and draped in the usual sterile fashion. Ultrasound showed a patent and compressible left basilic vein. After the skin was anesthetized with lidocaine, the basilic vein was accessed with micro micropuncture technique using ultrasound guidance. A guidewire was then advanced under fluoroscopic guidance into the superior vena cava. An image documenting ultrasound guidance for vascular access was permanently saved. The length of a single-lumen 4 Filipino PICC was trimmed to 39 cm and advanced through a peel-away sheath. The PICC was position with tip of PICC confirm a spot radiograph the superior vena cava. The PICC was secured to the patient's skin. The PICC was flushed. A biopatch and sterile dressing was applied. IMPRESSION: Placement of a single-lumen 4 Filipino PICC left basilic vein trimmed to 39 cm. The tip of the PICC is confirmed with spot radiograph and is in the superior vena cava.
== END 2017-02-04 16:59 | DRG 467 ==
LOC: H.ER 16:20 → H.ERHOLD 19:07 → H.MEDSURG1 21:52
PROVIDERS: ADMIT Internal Medicine; ATTEND Internal Medicine
PROC: 3E0T3BZ Introduction of Anesthetic Agent into Peripheral Nerves and Plexi, Percutaneous Approach (ICD-10-PCS; 2017-02-03)
PROC: 3E0T33Z Introduction of Anti-inflammatory into Peripheral Nerves and Plexi, Percutaneous Approach (ICD-10-PCS; 2017-02-03)
PROC: 0SPD0JZ Removal of Synthetic Substitute from Left Knee Joint, Open Approach (ICD-10-PCS; principal; 2017-02-03 16:45)
PROC: 0SRD06Z Replacement of Left Knee Joint with Oxidized Zirconium on Polyethylene Synthetic Substitute, Open Approach (ICD-10-PCS; 2017-02-03 16:45)
PROC: 02HV33Z Insertion of Infusion Device into Superior Vena Cava, Percutaneous Approach (ICD-10-PCS; 2017-02-04)
PROC: B518ZZA Fluoroscopy of Superior Vena Cava, Guidance (ICD-10-PCS; 2017-02-04)
PROC: 3E04329 Introduction of Other Anti-infective into Central Vein, Percutaneous Approach (ICD-10-PCS; 2017-02-04)
DX: T84.54XA Infection and inflammatory reaction due to internal left knee prosthesis, initial encounter (principal); D68.4 Acquired coagulation factor deficiency; D61.818 Other pancytopenia; N17.9 Acute kidney failure, unspecified; F10.239 Alcohol dependence with withdrawal, unspecified; D69.59 Other secondary thrombocytopenia; Z96.652 Presence of left artificial knee joint; B95.61 Methicillin susceptible Staphylococcus aureus infection as the cause of diseases classified elsewhere; K70.9 Alcoholic liver disease, unspecified; E87.6 Hypokalemia; M65.862 Other synovitis and tenosynovitis, left lower leg; E83.42 Hypomagnesemia; K22.70 Barrett's esophagus without dysplasia; D63.8 Anemia in other chronic diseases classified elsewhere; I10 Essential (primary) hypertension; E78.5 Hyperlipidemia, unspecified; F32.9 Major depressive disorder, single episode, unspecified; F41.9 Anxiety disorder, unspecified; M17.12 Unilateral primary osteoarthritis, left knee; N40.0 Benign prostatic hyperplasia without lower urinary tract symptoms; Y83.1 Surgical operation with implant of artificial internal device as the cause of abnormal reaction of the patient, or of later complication, without mention of misadventure at the time of the procedure; Z87.891 Personal history of nicotine dependence